=== PATIENT | male | born 1950 | race African-American/Black ===

== ENCOUNTER 2018-01-09 14:52 | Observation (INO) ==
[2018-01-09] MEDS ORDERED: Morphine Inj 4 MG/ML Vial IV.PUSH ONE (18:04)
[2018-01-09] MEDS ORDERED: Aspirin 325 MG Tablet PO ONE (18:04)
[2018-01-09 18:42] LABS: Baso % (Auto) 0.6 % (0.0-2.0); Eos # (Auto) 0.1 th/mm3 (0.0-0.4); Eos % (Auto) 1.4 % (0.0-4.0); Hematocrit 35.8 % (39.0-51.0); Hemoglobin 11.7 gm/dL (13.0-17.0); Lymph # (Auto) 1.8 th/mm3 (1.0-4.8); Lymph % (Auto) 38.4 % (9.0-44.0); Mean Corpuscular HGB Conc 32.6 % (32.0-36.0); Mean Corpuscular Hemoglobin 29.1 pg (27.0-34.0); Mean Corpuscular Volume 89.3 fL (80.0-100.0); Mean Platelet Volume 7.5 fL (7.0-11.0); Mono # (Auto) 0.2 th/mm3 (0.0-0.9); Mono % (Auto) 5.1 % (0.0-8.0); Neut # (Auto) 2.5 th/mm3 (1.8-7.7); Neut % (Auto) 54.5 % (16.0-70.0); Platelet Count 234 th/mm3 (150-450); Red Blood Count 4.01 mil/mm3 (4.50-5.90); Red Cell Distribution Width 14.7 % (11.6-17.2); White Blood Count 4.6 th/mm3 (4.0-11.0)
[2018-01-09 18:59] LABS: D-Dimer 2.25 mg/L FEU (0.00-0.50); Prothrombin Time 9.9 sec (9.8-11.6)
--- NOTE | 2018-01-09 19:00 | ED ---
HPI General Chief Complaint: Chest Pain Stated Complaint: Chest Pain Complaint Time Seen by Provider: 01/09/18 17:48 Source: patient Mode of arrival: ambulatory Limitations: no limitations History of Present Illness HPI narrative: 67-year-old male the presents to the ED for evaluation of chest pain. Per patient has been having chest pain since the past 3 days. Per patient he was opening will go away but it has not. Per patient becoming unrelenting. Per patient the pain is 8 out of 10. Feels like a pressure and short of breath. Denies any cough or runny nose. Patient states that walking makes it worse. Per patient laying flat sometimes makes it better. Denies any injury or trauma. Denies any history of heart disease in himself or family history. History of diabetes and high cholesterol. No history of high blood pressure. Has not seen anybody for this. No urinary or bowel movement issues. 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 Denies ever having a stress test. Sensation intact bilaterally. No numbness, drooling, weakness. Pain stays mainly on the mid chest And does not radiate. Related Data Home Medications Medication Instructions Recorded Confirmed gabapentin 300 mg PO BID 01/09/18 01/09/18 insulin aspart U-100 [Novolog 1 sliding scale dose SUBCUT UD 01/09/18 01/09/18 U-100 Insulin aspart] insulin degludec [Tresiba 20 unit SUBCUT DAILY 01/09/18 01/09/18 FlexTouch U-100] ranitidine HCl 75 mg PO DAILY PRN 01/09/18 01/09/18 sucralfate 1 g PO DAILY 01/09/18 01/09/18 Allergies Allergy/AdvReac Type Severity Reaction Status Date / Time No Known Allergies Allergy Unverified 01/09/18 18:04 Review of Systems ROS: all other systems reviewed are negative [facility] Medical History Medical History Chest pain (Acute) Diabetes (Acute) Gastroparesis (Acute) Social History Social History Substance History: No History of Abuse Smoking Status: Current every day smoker Tobacco Type: Cigarettes How Often Do You Have a Drink Containing Alcohol: Never Recent Travel in [facility] within the Last 8 Weeks: No Recent Out of Country Travel within the Last 8 Weeks: No Immunization History Tetanus Immunization: Unsure Exam Narrative Exam Narrative: GENERAL: Well appearing in some distress SKIN: Focused skin assessment warm/dry. HEAD: Atraumatic. Normocephalic. EYES: Pupils equal and round. No scleral icterus. No injection or drainage. ENT: No nasal bleeding or discharge. Mucous membranes pink and moist. Tongue is midline. No uvula deviation. NECK: Trachea midline. No JVD. CARDIOVASCULAR: Regular rate and rhythm. No murmur appreciated. RESPIRATORY: No accessory muscle use. Clear to auscultation. Breath sounds equal bilaterally. GASTROINTESTINAL: Abdomen soft, non-tender, nondistended. Hepatic and splenic margins not palpable. MUSCULOSKELETAL: No obvious deformities. No clubbing. No cyanosis. No edema. Full range of motion of the upper and lower extremities bilaterally. 2+ pulses bilaterally. Sensation intact bilaterally. NEUROLOGICAL: Awake and alert. No obvious cranial nerve deficits. Motor grossly within normal limits. Normal speech. PSYCHIATRIC: Appropriate mood and affect; insight and judgment normal. Course Initial Documented Vital Signs Temperature 98.8 F 01/09/18 14:57 Pulse Rate 88 01/09/18 14:57 Respiratory Rate 16 01/09/18 14:57 Blood Pressure 96/72 L 01/09/18 14:57 Pulse Oximetry 99 01/09/18 14:57 Last Documented Vital Signs Temperature 98.2 F 01/09/18 20:37 Pulse Rate 73 01/09/18 20:37 Respiratory Rate 20 01/09/18 20:39 Blood Pressure 140/84 01/09/18 20:37 Pulse Oximetry 100 01/09/18 20:37 Medical Decision Making [facility] Narrative Medical decision making narrative: 67-year-old male the presents to the ED for evaluation of chest pain. Patient was properly examined and was found to have signs and symptoms consistent appears to be chest pain. Concerning for ACS. Given aspirin, Initially patient was not given per EVAC was nitroglycerin as her initial blood pressure 90 systolic. Blood pressure was rechecked here and is now 150. Patient was given nitro. Labs and imaging ordered. Initial EKG did not show any sign of ST elevation read by me and attending. Labs and imaging here were essentially unremarkable. Patient had some improvement with the pain medication given here but unfortunately he does not have full remission of the pain. Patient does have risk factors. Mainly diabetes, high blood pressure, family history, male and age. At this time I recommend admission to chest pain center. Patient agrees with this. Case discussed with attending who agrees with plan. Patient was admitted to chest pain center by me. Medical Screen Exam Complete: Yes Emergency Medical Condition: Yes Differential Diagnosis Differential Diagnosis: Chest pain versus typical chest pain versus ACS versus PE versus pneumothorax Medical Records Medical records reviewed: Yes I reviewed the patient's medical records. Lab Data Lab results reviewed: Yes I reviewed the patient's lab results. Lab results narrative: troponin is negative CK MB negative Result diagrams: 01/09/18 18:14 01/09/18 18:14 Lab Results 01/09/18 01/09/18 01/09/18 Range/Units 18:14 18:14 18:14 WBC 4.6 (4.0-11.0) th/mm3 RBC 4.01 L (4.50-5.90) mil/mm3 Hgb 11.7 L (13.0-17.0) gm/dL Hct 35.8 L (39.0-51.0) % MCV 89.3 (80.0-100.0) fL MCH 29.1 (27.0-34.0) pg MCHC 32.6 (32.0-36.0) % RDW 14.7 (11.6-17.2) % Plt Count 234 (150-450) th/mm3 MPV 7.5 (7.0-11.0) fL Neut % (Auto) 54.5 (16.0-70.0) % Lymph % (Auto) 38.4 (9.0-44.0) % [place] % (Auto) 5.1 (0.0-8.0) % Eos % (Auto) 1.4 (0.0-4.0) % Baso % (Auto) 0.6 (0.0-2.0) % Neut # (Auto) 2.5 (1.8-7.7) th/mm3 Lymph # (Auto) 1.8 (1.0-4.8) th/mm3 [place] # (Auto) 0.2 (0.0-0.9) th/mm3 Eos # (Auto) 0.1 (0.0-0.4) th/mm3 Baso # (Auto) 0.0 (0.0-0.2) th/mm3 WBC Differential . Differential Comment Auto diff final PT 9.9 (9.8-11.6) sec INR 1.0 Ratio D-Dimer Quant (PE/DVT) 2.25 H (0.00-0.50) mg/L FEU Sodium 137 (136-145) meq/L Potassium 4.0 (3.5-5.1) meq/L Chloride 103 (98-107) meq/L Carbon Dioxide 23.9 (21.0-32.0) meq/L Anion Gap 10 (5-15) meq/L BUN 14 (7-18) mg/dL Creatinine 1.14 (0.60-1.30) mg/dL Estimated GFR 64 L (>89) mL/min Random Glucose 265 H (74-106) mg/dL Calcium 8.7 (8.5-10.1) mg/dL Magnesium 1.7 (1.5-2.5) mg/dL Total Bilirubin 0.4 (0.2-1.0) mg/dL AST 49 H (15-37) U/L ALT 71 (12-78) U/L Alkaline Phosphatase 141 H (45-117) U/L Total Creatine Kinase 66 (39-308) U/L Troponin I Less than 0.02 L (0.02-0.05) ng/mL B-Natriuretic Peptide (0-100) pg/mL Total Protein 7.7 (6.4-8.2) g/dL Albumin 3.6 (3.4-5.0) g/dL Lipase 99 (73-393) U/L 10/15/18 Range/Units 18:14 WBC (4.0-11.0) th/mm3 RBC (4.50-5.90) mil/mm3 Hgb (13.0-17.0) gm/dL Hct (39.0-51.0) % MCV (80.0-100.0) fL MCH (27.0-34.0) pg MCHC (32.0-36.0) % RDW (11.6-17.2) % Plt Count (150-450) th/mm3 MPV (7.0-11.0) fL Neut % (Auto) (16.0-70.0) % Lymph % (Auto) (9.0-44.0) % [place] % (Auto) (0.0-8.0) % Eos % (Auto) (0.0-4.0) % Baso % (Auto) (0.0-2.0) % Neut # (Auto) (1.8-7.7) th/mm3 Lymph # (Auto) (1.0-4.8) th/mm3 [place] # (Auto) (0.0-0.9) th/mm3 Eos # (Auto) (0.0-0.4) th/mm3 Baso # (Auto) (0.0-0.2) th/mm3 WBC Differential Differential Comment PT (9.8-11.6) sec INR Ratio D-Dimer Quant (PE/DVT) (0.00-0.50) mg/L FEU Sodium (136-145) meq/L Potassium (3.5-5.1) meq/L Chloride (98-107) meq/L Carbon Dioxide (21.0-32.0) meq/L Anion Gap (5-15) meq/L BUN (7-18) mg/dL Creatinine (0.60-1.30) mg/dL Estimated GFR (>89) mL/min Random Glucose (74-106) mg/dL Calcium (8.5-10.1) mg/dL Magnesium (1.5-2.5) mg/dL Total Bilirubin (0.2-1.0) mg/dL AST (15-37) U/L ALT (12-78) U/L Alkaline Phosphatase (45-117) U/L Total Creatine Kinase (39-308) U/L Troponin I (0.02-0.05) ng/mL B-Natriuretic Peptide 13 (0-100) pg/mL Total Protein (6.4-8.2) g/dL Albumin (3.4-5.0) g/dL Lipase (73-393) U/L Imaging Data Attestation: I personally reviewed and interpreted this imaging study as follows : Radiologist's impression: Chest X-Ray 01/09/18 18:04 CONCLUSION: No acute cardiopulmonary disease. Chest CTA 01/09/18 19:00 CONCLUSION: 1. No evidence of pulmonary embolism. ECG Data Attestation: I personally reviewed and interpreted this ECG as follows: Interpretation: EKG shows sinus rhythm with no sign of acute ischemia or arrhythmia. Ventricular rate of 87 bpm, TN interval of [address] elevation noted. Read by me and attending Dr. Lei. Discharge Plan Discharge Disposition Patient Disposition: 30 Still Patient Discharge Details Diagnosis: Chest pain Physicians Team ED Provider: Shelly Bey ED Midlevel Provider: Addison Olivares Primary Care Provider: UNKNOWN, Rxs /Orders / Referrals /Forms Prescriptions: No Action sucralfate 1 gram Tablet 1 g PO DAILY RF: 0 ranitidine HCl 75 mg Tablet 75 mg PO DAILY PRN (Reason: Acid Reflux) RF: 0 insulin aspart U-100 [Novolog U-100 Insulin aspart] 100 unit/mL Solution 1 sliding scale dose SUBCUT UD RF: 0 gabapentin 300 mg Capsule 300 mg PO BID RF: 0 insulin degludec [Tresiba FlexTouch U-100] 100 unit/mL (3 mL) Insulin Pen 20 unit SUBCUT DAILY RF: 0 Discharge Instructions Patient Printed Instructions: Chest Pain (ED) Discharge Interventions Interventions: Vital Signs Last Done: 01/09/18 14:57 Status ED Status: Admitted Observation Patient
--- NOTE | 2018-01-09 19:02 | XR ---
EXAM DATE: 01/09/2018 6:04 PM EDT AGE/SEX: 67 years / Male INDICATIONS: Chest pain. CLINICAL DATA: This is the patient's initial encounter. Patient reports that signs and symptoms have been present for 1 day and indicates a pain score of 7/10. MEDICAL/SURGICAL HISTORY: . Current smoker. None. COMPARISON: No prior exams available for comparison. FINDINGS: A single AP view of the chest demonstrates the lungs to be symmetrically aerated without evidence of mass, infiltrate or effusion. The cardiomediastinal contours are unremarkable. Osseous structures a re intact. There are overlying electrocardiogram leads. CONCLUSION: No acute cardiopulmonary disease. Electronically signed by: Dash Diaz MD 01/09/2018 7:01 PM EDT
[2018-01-09 19:09] LABS: Albumin 3.6 g/dL (3.4-5.0); Anion Gap 10 meq/L (5-15); Aspartate Aminotransferase 49 U/L (15-37); Blood Urea Nitrogen 14 mg/dL (7-18); Calcium 8.7 mg/dL (8.5-10.1); Carbon Dioxide 23.9 meq/L (21.0-32.0); Chloride 103 meq/L (98-107); Glomerular Filtration Rate 64 mL/min (>89); Glucose,Random 265 mg/dL (74-106); Lipase 99 U/L (73-393); Magnesium 1.7 mg/dL (1.5-2.5); Sodium 137 meq/L (136-145)
[2018-01-09 19:12] LABS: Alanine Aminotransferase 71 U/L (12-78); Alkaline Phosphatase 141 U/L (45-117); Total Protein 7.7 g/dL (6.4-8.2)
[2018-01-09 19:14] LABS: Creatine Kinase 66 U/L (39-308)
--- NOTE | 2018-01-09 21:28 | CT ---
EXAM DATE: 01/09/2018 7:24 PM EDT AGE/SEX: 67 years / Male INDICATIONS: Chest pain for three days. CLINICAL DATA: This is the patient's initial encounter. Patient reports that signs and symptoms have been present for 3 days and indicates a pain score of 7/10. MEDICAL/SURGICAL HISTORY: Diabetes. None. RADIATION DOSE: 6.56 CTDI (mGy) COMPARISON: No prior exams available for comparison. TECHNIQUE: Volumetric scanning was performed using a multi-row detector CT scanner during bolus infu salas of 76 ml Omnipaque 350 (iohexol) nonionic water-soluble contrast as a single exam dose. The daquan a was post processed with a variety of visualization algorithms including full volume maximum intensi ty projection and sliding thin slab reformation. Using automated exposure control and adjustment of t he mA and/or kV according to patient size, radiation dose was kept as low as reasonably achievable to obtain optimal diagnostic quality images. DICOM format image data is available electronically for r eview and comparison. FINDINGS: Pulmonary Arteries: No filling defects are seen in the pulmonary arteries out to the subsegmental ve ssels. The left and right pulmonary arteries are normal in diameter. Lung: No infiltrates seen. Effusion: None. Mediastinum: No evidence of mediastinal or hilar adenopathy. Other: The axilla is unremarkable. CONCLUSION: 1. No evidence of pulmonary embolism. Electronically signed by: Dash Diaz MD 01/09/2018 9:27 PM EDT
[2018-01-09] MEDS ORDERED: Acetaminophen 500 MG Tablet PO PRN (21:34)
[2018-01-10 00:33] LABS: Creatine Kinase 68 U/L (39-308)
[2018-01-10] MEDS: Morphine Inj 4 MG/ML Vial IV.PUSH PRN ×2 (00:37→10:12)
[2018-01-10 05:58] LABS: Creatine Kinase 57 U/L (39-308)
[2018-01-10 07:52] VITALS: BP 92/56; RESP 18; TEMP 98.5; O2SAT 98
[2018-01-10] MEDS ORDERED: Aluminum/Magnesium/Simethacone Susp 30 ML UDC PO ONE (08:49)
[2018-01-10] MEDS ORDERED: Dextrose 50% in Water 50 ML Vial IV.PUSH PRN (08:57)
[2018-01-10] MEDS ORDERED: Aspirin 325 MG Tablet PO SCH (09:00)
[2018-01-10] MEDS ORDERED: Gabapentin 300 MG Capsule PO SCH (09:00)
--- NOTE | 2018-01-10 09:41 | P.HPCA ---
History of Present Illness Primary Care Physician: UNKNOWN Chief Complaint: Chest pain History of Present Illness: This is a 67-year-old male with history of diabetes, gastroparesis, GERD, hyperlipidemia, neuropathy, and tobacco abuse that presents to ED via private vehicle with a client of constant chest pain times 5 days. Describes as a throbbing. Worse level is a 9 out of 10 and states that is where the level is currently. Talking seems to worsen it. Remaining still seems to improve. Certain movements aggravate it as well. Denies associated shortness of breath, nausea, diaphoresis. Cannot recall prior cardiac workup. States there is family history of heart disease. History of diabetes, hyperlipidemia, gastroparesis, GERD, neuropathy, tobacco abuse. Denies known CAD. He states his brother in his 50s of a myocardial infarction. He smokes about 1/4 pack a series daily for 45 years. States he had no alcohol for years. Has had no marijuana in for 5 months. - Diagnosis (1) Chest pain (2) Diabetes (3) GERD (gastroesophageal reflux disease) (4) Gastroparesis (5) Tobacco abuse (6) Neuropathy (7) Hyperlipidemia Review of Systems General: Patient denies fevers, chills, and recent travel. HEENT: Patient denies headache, sore throat, difficulty swallowing. Cardiovascular: Has the chest discomfort as mentioned above. Denies sensation of heart beating rapidly or irregularly. No syncope. Denies diaphoresis. Respiratory: Denies shortness of breath or inspirational chest discomfort. Denies coughing wheezing or hemoptysis. GI: Patient denies nausea, vomiting, diarrhea, abdominal pain, bloody stools. Musculoskeletal: Patient denies joint pain or edema. Denies calf pain or edema. Neurovascular: Patient denies numbness, tingling, weakness in extremities. Denies headache. Endocrine: Denies polyuria and polydipsia. Hematologic: Denies easy bruising. Skin: Denies rash or itching. PMFSH - History History Provided By: Patient - Medical History Medical History: Medical History (Last Reviewed 01/09/18 @ 18:57 by BRODY Gannon) Chest pain Diabetes Gastroparesis - Tobacco History Second Hand Smoke Exposure: Yes Tobacco Use In Past 30 Days: Yes Smoking Status: Current every day smoker Tobacco Type: Cigarettes - Alcohol History How Often Do You Have a Drink Containing Alcohol: Never - Substance Use History Substance History: No History of Abuse - Travel History Recent Travel in the [place] Within the Last 8 Weeks: No Recent Travel Out of the Country Within the Last 8 Weeks: No - Immunization History Tetanus Immunization: Unsure Medications and Allergies Active Medications: Active Medications Acetaminophen (Tylenol) 500 mg PO Q4H PRN PRN Reason: HEADACHE Hydrocodone Bitart/Acetaminophen (Hope 7.5/325) 1 tab PO Q4H PRN PRN Reason: PAIN SCALE 1 TO 7 Albuterol (Duoneb Neb (Prn)) 1 ampul NEB Q4HR NEB PRN PRN Reason: SHORTNESS OF BREATH/WHEEZING Aspirin (Aspirin) 325 mg PO DAILY JAMAL Dextrose (D50w Vial) 50 ml IV.PUSH UNSCH PRN PRN Reason: PER HYPOGLYCEMIA PROTOCOL Gabapentin (Neurontin) 300 mg PO BID JAMAL Glucagon (Glucagon Inj) 1 mg OTHER PRN PRN PRN Reason: for Hypoglycemia Protocol Insulin Human Regular (Novolin R Correctional Sugar Inj) 0 units SQ ACHS JAMAL; Protocol Morphine Sulfate (Morphine Inj) 2 mg IV.PUSH Q4H PRN PRN Reason: PAIN SCALE 8 TO 10 Last Admin: 01/10/18 00:37 Dose: 2 mg Ondansetron HCl (Zofran Inj) 4 mg IV.PUSH Q6H PRN PRN Reason: NAUSEA Pantoprazole Sodium (Protonix) 40 mg PO DAILY JAMAL Sodium Chloride (Ns Flush) 2 ml IV.FLUSH UNSCH PRN PRN Reason: FLUSH AFTER USING IV ACCESS Sodium Chloride (Ns Flush) 2 ml IV.FLUSH BID JAMAL Sodium Chloride (Ns Flush) 2 ml IV.FLUSH PRN PRN PRN Reason: FLUSH AFTER USING IV ACCESS Allergies Allergy/AdvReac Type Severity Reaction Status Date / Time No Known Allergies Allergy Unverified 01/09/18 18:04 Home Medications Medication Instructions Recorded Confirmed Type gabapentin 300 mg PO BID 01/09/18 01/09/18 History insulin aspart U-100 [Novolog 1 sliding scale dose SUBCUT UD 01/09/18 01/09/18 History U-100 Insulin aspart] insulin degludec [Tresiba 20 unit SUBCUT DAILY 01/09/18 01/09/18 History FlexTouch U-100] ranitidine HCl 75 mg PO DAILY PRN 01/09/18 01/09/18 History sucralfate 1 g PO DAILY 01/09/18 01/09/18 History Exam Vital signs: Vital Signs 01/09/18 14:57 01/09/18 18:18 01/09/18 20:37 Temperature 98.8 F 98 F 98.2 F Pulse Rate 88 87 72 Respiratory Rate 16 18 20 Blood Pressure 96/72 L 155/75 H 140/84 Pulse Oximetry 99 99 100 01/09/18 20:38 01/09/18 20:39 01/09/18 23:17 Temperature 98.2 F Pulse Rate 75 Respiratory Rate 20 20 20 Blood Pressure 125/68 Pulse Oximetry 95 01/10/18 03:15 01/10/18 07:49 Temperature 97.8 F 98.5 F Pulse Rate 67 76 Respiratory Rate 19 18 Blood Pressure 119/70 92/56 L Pulse Oximetry 100 98 Intake & Output 01/09/18 01/10/18 01/10/18 18:59 06:59 18:59 Weight 55.338 kg 55.34 kg Other: Date of Last Bowel Movement 01/09/18 Weight On Admission 55.338 kg Narrative: GENERAL: This is a well-nourished, well-developed patient, in no apparent distress. Patient speaks in clear complete sentences. Patient is pleasant. HEENT: Head is atraumatic and normocephalic. Neck is supple without lymphadenopathy and trachea is midline. No JVD or carotid bruits. CARDIOVASCULAR: Regular rate and rhythm without murmurs, gallops, or rubs. RESPIRATORY: Clear to auscultation. Breath sounds equal bilaterally. No wheezes , rales, or rhonchi. Chest wall is tender. No use of accessory muscles. GASTROINTESTINAL: Abdomen is nontender, nondistended. Abdomen soft. No obvious pulsatile mass or bruit. No CVA tenderness. Strong femoral pulses bilaterally. Normal bowel sounds in all quadrants. MUSCULOSKELETAL: Patient is moving upper and lower extremities freely. No calf tenderness or edema, no Homans sign. Strong pulses in upper and lower extremities. NEUROLOGICAL: Patient is alert and oriented. Cranial nerves 2-12 are grossly intact. No focal deficits and speech is clear. SKIN: No rash and turgor is normal. Results 01/09/18 18:14 01/09/18 18:14 Cardiac Enzymes 01/09/18 01/09/18 01/09/18 Range/Units 18:14 18:14 23:45 AST 49 H (15-37) U/L Troponin I Less than 0.02 L Less than 0.02 L (0.02-0.05) ng/mL B-Natriuretic Peptide 13 (0-100) pg/mL 01/10/18 Range/Units 05:10 AST (15-37) U/L Troponin I Less than 0.02 L (0.02-0.05) ng/mL B-Natriuretic Peptide (0-100) pg/mL Coagulation 01/09/18 01/09/18 Range/Units 18:14 18:14 PT 9.9 (9.8-11.6) sec B-Natriuretic Peptide 13 (0-100) pg/mL CBC 01/09/18 Range/Units 18:14 WBC 4.6 (4.0-11.0) th/mm3 RBC 4.01 L (4.50-5.90) mil/mm3 Hgb 11.7 L (13.0-17.0) gm/dL Hct 35.8 L (39.0-51.0) % Plt Count 234 (150-450) th/mm3 Neut # (Auto) 2.5 (1.8-7.7) th/mm3 Lymph # (Auto) 1.8 (1.0-4.8) th/mm3 [place] # (Auto) 0.2 (0.0-0.9) th/mm3 Eos # (Auto) 0.1 (0.0-0.4) th/mm3 Baso # (Auto) 0.0 (0.0-0.2) th/mm3 Comprehensive Metabolic Panel 01/09/18 Range/Units 18:14 Sodium 137 (136-145) meq/L Potassium 4.0 (3.5-5.1) meq/L Chloride 103 (98-107) meq/L Carbon Dioxide 23.9 (21.0-32.0) meq/L BUN 14 (7-18) mg/dL Creatinine 1.14 (0.60-1.30) mg/dL Calcium 8.7 (8.5-10.1) mg/dL AST 49 H (15-37) U/L ALT 71 (12-78) U/L Alkaline Phosphatase 141 H (45-117) U/L Total Protein 7.7 (6.4-8.2) g/dL Albumin 3.6 (3.4-5.0) g/dL Intake and Output 01/09/18 01/10/18 01/10/18 22:59 06:59 14:59 Other: Date of Last Bowel Movement 01/09/18 Weight 55.34 kg Weight On Admission 55.338 kg - Imaging and Cardiology Imaging: Impressions Chest X-Ray 01/09/18 18:04 CONCLUSION: No acute cardiopulmonary disease. Chest CTA 01/09/18 19:00 CONCLUSION: 1. No evidence of pulmonary embolism. EKG interpretations - EKG EKG shows: sinus rhythm (EKGs are sinus rhythm without significant ST segment depressions or elevations.) Caprini VTE Risk Assessment Caprini VTE Risk Assessment: Moderate/High Risk (score >= 2) Caprini Risk Assessment Model: Point Value = 1 Point Value = 2 Point Value = 3 Point Value = 5 Age 41-60 Minor surgery BMI > 25 kg/m2 Swollen legs Varicose veins or History of unexplained or recurrent spontaneous Oral contraceptives or hormone replacement Sepsis (< 1 month) Serious lung disease, including pneumonia (< 1 month) Abnormal pulmonary function Acute myocardial infarction Congestive heart failure (< 1 month) History of inflammatory bowel disease Medical patient at bed rest Age 61-74 Arthroscopic surgery Major open surgery (> 45 min) Laparoscopic surgery (> 45 min) Malignancy Confined to bed (> 72 hours) Immobilizing plaster cast Central venous access Age >= 75 History of VTE Family history of VTE Factor V Leiden Prothrombin [id number] Lupus anticoagulant Anticardiolipin antibodies Elevated serum homocysteine Heparin-induced thrombocytopenia Other congenital or acquired thrombophilia Stroke (< 1 month) Elective arthroplasty Hip, pelvis, or leg fracture Acute spinal cord injury (< 1 month) Prophylaxis Regimen: Total Risk Factor Score Risk Level Prophylaxis Regimen 0-1 Low Early ambulation 2 Moderate Order ONE of the following: *Sequential Compression Device (SCD) *Heparin 5000 units SQ BID 3-4 Higher Order ONE of the following medications: *Heparin 5000 units SQ TID *Enoxaparin/Lovenox 40 mg SQ daily (WT < 150 kg, CrCl > 30 mL/min) *Enoxaparin/Lovenox 30 mg SQ daily (WT < 150 kg, CrCl > 10-29 mL/min) *Enoxaparin/Lovenox 30 mg SQ BID (WT < 150 kg, CrCl > 30 mL/min) AND/OR *Sequential Compression Device (SCD) 5 or more Highest Order ONE of the following medications: *Heparin 5000 units SQ TID (Preferred with Epidurals) *Enoxaparin/Lovenox 40 mg SQ daily (WT < 150 kg, CrCl > 30 mL/min) *Enoxaparin/Lovenox 30 mg SQ daily (WT < 150 kg, CrCl > 10-29 mL/min) *Enoxaparin/Lovenox 30 mg SQ BID (WT < 150 kg, CrCl > 30 mL/min) AND *Sequential Compression Device (SCD) Assessment and Plan - Assessment (1) Chest pain Code(s): R07.9 - Chest pain, unspecified Status: Acute (2) Diabetes Code(s): E11.9 - Type 2 diabetes mellitus without complications Status: Acute (3) GERD (gastroesophageal reflux disease) Code(s): K21.9 - Gastro-esophageal reflux disease without esophagitis Status: Acute (4) Gastroparesis Code(s): K31.84 - Gastroparesis Status: Acute (5) Tobacco abuse Code(s): Z72.0 - Tobacco use Status: Acute (6) Neuropathy Code(s): G62.9 - Polyneuropathy, unspecified Status: Acute (7) Hyperlipidemia Code(s): E78.5 - Hyperlipidemia, unspecified Status: Acute - Plan * Chest pain: Symptoms seem atypical however he has multiple risk factors. He has had serial cardiac enzymes and EKGs for ruling out purposes. He will be seen by Dr. Stoll of cardiology and chest pain center. He will undergo a Lexiscan as he states that he would not be able to go on a treadmill with his neuropathy in his feet. He will be discharged home if the stress test is nonischemic with instructions to follow-up with PCP and return to ED for interval issues. * Diabetes: Sliding scale insulin coverage while in chest pain center. Resume medication at home. Follow diabetic diet. * Hyperlipidemia: States he was recently started on statin. Cannot recall the name but he should resume it. Follow-up with his PCP. * Neuropathy: Continues gabapentin. * Gastroparesis and GERD: Continue his medications and follow-up with his physician. * Tobacco abuse: Patient has been counseled on the importance of smoking cessation. Patient is stable at this time. He is agreeable to this plan. H&P: Quality - VTE Deep Vein Thrombosis/Pulmonary Embolism Present on Admission: No (1) Chest pain Qualifiers: Chest pain type: other chest pain Qualified Code(s): R07.89 - Other chest pain; R07.8 - Other chest pain
[2018-01-10] MEDS ORDERED: Regadenoson Inj 0.4 MG/5 ML Syringe IV.PUSH ONE (11:06)
[2018-01-10 11:34] VITALS: PULSE 71
[2018-01-10] MEDS ORDERED: Insulin NovoLIN Regular Correctional Sugar Inj SQ SCH (12:00)
--- NOTE | 2018-01-10 12:37 | TR ---
Date Performed: 01/10/2018 Time Performed: 11:55:30 DOCTOR: Andi Stoll DRUG LIST: CLINICAL HISTORY: REASON FOR TEST: REASON FOR ENDING: OBSERVATION: CONCLUSION: COMMENTS: Lexiscan stress test was performed under standard four minute protocol. Radionuclide was injected one minute prior to ending the test. No electrocardiographic abormalities were present t o suggest ischemia. Nuclear imaging and interpretation are pending.
--- NOTE | 2018-01-10 12:49 | ECG ---
Date Performed: 01/10/2018 Time Performed: 03:06:59 PTAGE: 67 years EKG: Sinus rhythm NORMAL ECG PREVIOUS TRACING : 01/09/2018 22.00 Since previous tracing, no significant change noted DOCTOR: Andi Stoll Interpretating Date/Time 01/10/2018 12:47:20
--- NOTE | 2018-01-10 12:57 | ECG ---
Date Performed: 01/09/2018 Time Performed: 22:00:23 PTAGE: 67 years EKG: Sinus rhythm NORMAL ECG PREVIOUS TRACING : 01/09/2018 15.06 Since previous tracing, no significant change noted DOCTOR: Andi Stoll Interpretating Date/Time 01/10/2018 12:55:50
--- NOTE | 2018-01-10 13:07 | ECG ---
Date Performed: 01/09/2018 Time Performed: 15:06:03 PTAGE: 67 years EKG: Sinus rhythm NORMAL ECG NO PREVIOUS TRACING DOCTOR: Andi Stoll Interpretating Date/Time 01/10/2018 13:07:21
--- NOTE | 2018-01-10 13:20 | NM ---
EXAM DATE: 01/10/2018 10:20 AM EDT AGE/SEX: 67 years / Male INDICATIONS:Angina. . Chest pain. CLINICAL DATA: This is the patient's initial encounter. Patient reports that signs and symptoms have been present for 1 day and indicates a pain score of 0/10. MEDICAL/SURGICAL HISTORY: Diabetes mellitus type II. Gastroparesis. None. COMPARISON: No prior exams available for comparison. DOSE: 8.3 mCi Tc 99m Myoview at rest 27.2 mCi [id number] at stress 0.4 mg Lexiscan STRESS SYMPTOMS: Dyspnea. EJECTION FRACTION: 68 % TECHNIQUE: The patient underwent pharmacologic stress with infusion of prescribed dose. Continuous ECG tracing was monitored during stress. Gated SPECT imaging was performed after stress and conventi onal SPECT imaging was performed at rest. The examination was performed on a SPECT/CT scanner, both attenuation and non-corrected datasets were reviewed. FINDINGS: Large amount of bowel activity limiting evaluation of the inferior wall. Distribution: The maximum perfused segment at stress is in the anteroseptal wall. Perfusion Study: The pattern of perfusion at stress is within normal limits. Gated Study: There are intact wall motion and wall thickening without hypokinetic or dyskinetic segm ents. The ejection fraction is calculated at 68%. RISK CATEGORY: Low (<1% Annual Motality Rate) CONCLUSION: 1. No stress-induced ischemia. 2. Intact wall motion with EF of 68%. Electronically signed by: Adebayo Hernandez MD 01/10/2018 1:19 PM EDT
== END 2018-01-10 16:13 | disposition home or self-care (01) ==
LOC: NEDA 14:52 → NEPC 14:52 → NEPFCDU 22:13

== ENCOUNTER 2018-02-04 20:04 | Inpatient (IN) ==
[2018-02-04 20:46] LABS: VBG Base Excess 5.2 mmol/L (-2-2); VBG Blood Gas Oxygen Content 8.5 Vol % (9.0-17.0); VBG PCO2 63 mmHG (44-48); VBG PH 7.31 (7.360-7.400); VBG PO2 33 mmHG (35-40)
[2018-02-04] MEDS: Sod Chloride 0.9% Inj 1,000 ML IV.SIG SCH ×3 (20:54→22:05)
[2018-02-04 20:58] LABS: Baso % (Auto) 0.1 % (0.0-2.0); Eos % (Auto) 0.1 % (0.0-4.0); Hematocrit 44.8 % (39.0-51.0); Hemoglobin 13.3 gm/dL (13.0-17.0); Lymph # (Auto) 0.6 th/mm3 (1.0-4.8); Lymph % (Auto) 8.1 % (9.0-44.0); Mean Corpuscular Volume 97.8 fL (80.0-100.0); Mean Platelet Volume 8.6 fL (7.0-11.0); Mono # (Auto) 0.2 th/mm3 (0.0-0.9); Mono % (Auto) 3.1 % (0.0-8.0); Neut # (Auto) 6.1 th/mm3 (1.8-7.7); Neut % (Auto) 88.6 % (16.0-70.0); Platelet Count 218 th/mm3 (150-450); Red Blood Count 4.59 mil/mm3 (4.50-5.90); Red Cell Distribution Width 15.1 % (11.6-17.2); White Blood Count 6.9 th/mm3 (4.0-11.0)
[2018-02-04 21:00] LABS: Mean Corpuscular HGB Conc 29.6 % (32.0-36.0)
[2018-02-04 21:11] LABS: Amorphous Sediment,Urine Rare /hpf; Bilirubin,Urine Negative (Negative); Clarity,Urine Hazy (Clear); Color,Urine Straw (Yellw/Straw); Glucose,Urine (UA) 500 or Greater mg/dL (Negative); Leukocyte Esterase,Urine Negative (Negative); Nitrite,Urine Negative (Negative); Specific Gravity,Urine 1.027 (1.002-1.035)
[2018-02-04 21:26] LABS: Alanine Aminotransferase 69 U/L (12-78); Albumin 4.6 g/dL (3.4-5.0); Alkaline Phosphatase 422 U/L (45-117); Anion Gap 10 meq/L (5-15); Aspartate Aminotransferase 48 U/L (15-37); Blood Urea Nitrogen 45 mg/dL (7-18); Calcium 10.8 mg/dL (8.5-10.1); Carbon Dioxide 30.6 meq/L (21.0-32.0); Chloride 98 meq/L (98-107); Creatine Kinase 105 U/L (39-308); Glomerular Filtration Rate 47 mL/min (>89); Magnesium 3.1 mg/dL (1.5-2.5); Potassium 5.3 meq/L (3.5-5.1); Sodium 139 meq/L (136-145); Total Protein 9.4 g/dL (6.4-8.2)
[2018-02-04 21:29] LABS: Glucose,Random 1246 mg/dL (74-106)
--- NOTE | 2018-02-04 21:38 | ED ---
HPI General Chief Complaint: Altered Mental Status Stated Complaint: Poss AMS Time Seen by Provider: 02/04/18 20:06 Source: EMS Mode of arrival: EMS Limitations: altered mental status History of Present Illness HPI narrative: 67-year-old male was found down at his home and 911 was called. Unknown downtime. Unknown last seen normal. He was covered in feces. Patient has history of diabetes and as per EMS his blood sugar read was "high". Patient was brought in with a GCS of 12. Vital signs were relatively stable. He was not in a condition to give any meaningful history. There was no friend or family member around him. Related Data Home Medications Medication Instructions Recorded Confirmed gabapentin 300 mg PO BID 01/09/18 02/04/18 insulin aspart U-100 [Novolog 1 sliding scale dose SUBCUT UD 01/09/18 02/04/18 U-100 Insulin aspart] insulin degludec [Tresiba 20 unit SUBCUT DAILY 01/09/18 02/04/18 FlexTouch U-100] ranitidine HCl 75 mg PO DAILY PRN 01/09/18 02/04/18 sucralfate 1 g PO DAILY 01/09/18 02/04/18 aspirin [Aspir-81] 81 mg PO DAILY 02/04/18 02/04/18 Allergies Allergy/AdvReac Type Severity Reaction Status Date / Time No Known Allergies Allergy Unverified 01/09/18 18:04 Review of Systems ROS Unobtainable ROS Unobtainable: unobtainable due to mental status ROS: all other systems reviewed are negative [facility] Medical History Medical History Chest pain (Acute) Diabetes (Acute) Gastroparesis (Acute) MDRO (multiple drug resistant organisms) resistance (Acute ~02/05/18) Social History Social History Substance History: Past History Second Hand Smoke Exposure: Yes Smoking Status: Heavy tobacco smoker Tobacco Type: Cigarettes How Often Do You Have a Drink Containing Alcohol: Never Recent Travel in [place] within the Last 8 Weeks: No Recent Out of Country Travel within the Last 8 Weeks: No Immunization History Tetanus Immunization: Unsure Exam Narrative Exam Narrative: GENERAL: Altered mental status, emaciated, poor general hygiene , moderate distress SKIN: Focused skin assessment warm/dry. Poor skin hygiene HEAD: Atraumatic. Normocephalic. EYES: Pupils equal and round. No scleral icterus. No injection or drainage. ENT: No nasal bleeding or discharge. Dry mucous membrane, coated tongue NECK: Trachea midline. No JVD. CARDIOVASCULAR: Regular rate and rhythm. No murmur appreciated. RESPIRATORY: No accessory muscle use. Clear to auscultation. Breath sounds equal bilaterally. GASTROINTESTINAL: Abdomen soft, non-tender, nondistended. Hepatic and splenic margins not palpable. MUSCULOSKELETAL: No obvious deformities. No clubbing. No cyanosis. No edema. NEUROLOGICAL: GCS of 12. No obvious cranial nerve deficits. Motor grossly within normal limits. PSYCHIATRIC: Unable to determine Course Initial Documented Vital Signs Temperature 98.7 F 02/04/18 20:09 Pulse Rate 96 H 02/04/18 20:09 Respiratory Rate 20 02/04/18 20:09 Blood Pressure 125/74 02/04/18 20:09 Pulse Oximetry 96 02/04/18 20:09 Last Documented Vital Signs Temperature 97.9 F 02/07/18 08:00 Pulse Rate 70 02/07/18 12:00 Respiratory Rate 18 02/07/18 08:00 Blood Pressure 152/86 H 02/07/18 08:00 Pulse Oximetry 99 02/07/18 10:52 Critical Care Time Critical Care Time: Yes Total Critical Care Time: 75 Attestation: Aggregate critical care time was 60 minutes. Time to perform other separately billable procedures was not included in the critical care time. My time did not include minutes spent treating any other patients simultaneously or on activities that did not directly contribute to the patient's treatment. The services I provided to this patient were to treat and/or prevent clinically significant deterioration that could result in: Altered mental status, severe dehydration, hyperglycemia, insulin drip I provided critical care services requiring my management, as noted below: Chart data review, documentation time, medication orders and management, vital sign assessments/reviewing monitor data, ordering and reviewing lab tests, ordering and interpreting/reviewing x-rays and diagnostic studies, care of the patient and discussion of the patient with the admitting physicians. Medical Decision Making MDM Narrative Medical decision making narrative: 9:43 PM patient was given 3 L of IV fluid bolus and 7.5 units of IV regular insulin. Lab just called to inform the critically high blood sugar of 1250. UA suggestive of UTI. Have given a dose of Rocephin. Patient given his altered mental status and severe dehydration should go to the ICU. Awaiting for the solutions sales consultant to call back. 10:10 PM repeat blood glucose is still more than 600. I started him on insulin drip as per the solutions sales consultant request. Supervisor Mending has accepted the patient. Waiting for CT head and chest x-ray. Medical Screen Exam Complete: Yes Emergency Medical Condition: Yes Lab Data Result diagrams: 02/07/18 04:59 02/07/18 04:59 Lab Results 02/04/18 02/04/18 02/04/18 Range/Units 20:18 20:40 20:46 WBC 6.9 (4.0-11.0) th/mm3 RBC 4.59 (4.50-5.90) mil/mm3 Hgb 13.3 (13.0-17.0) gm/dL Hct 44.8 (39.0-51.0) % MCV 97.8 (80.0-100.0) fL MCH 29.0 (27.0-34.0) pg MCHC 29.6 L (32.0-36.0) % RDW 15.1 (11.6-17.2) % Plt Count 218 (150-450) th/mm3 MPV 8.6 (7.0-11.0) fL Neut % (Auto) 88.6 H (16.0-70.0) % Lymph % (Auto) 8.1 L (9.0-44.0) % [place] % (Auto) 3.1 (0.0-8.0) % Eos % (Auto) 0.1 (0.0-4.0) % Baso % (Auto) 0.1 (0.0-2.0) % Neut # (Auto) 6.1 (1.8-7.7) th/mm3 Lymph # (Auto) 0.6 L (1.0-4.8) th/mm3 [place] # (Auto) 0.2 (0.0-0.9) th/mm3 Eos # (Auto) 0.0 (0.0-0.4) th/mm3 Baso # (Auto) 0.0 (0.0-0.2) th/mm3 WBC Differential . Differential Comment Auto diff final Puncture Site Rn elaine from iv Patient Temperature 98.6 VBG pH 7.31 L (7.360-7.400) VBG pCO2 63 H* (44-48) mmHG VBG pO2 33 L (35-40) mmHG VBG HCO3 31 H (22-26) mmol/L VBG O2 Saturation 49 L (70-76) % VBG O2 Content 8.5 L (9.0-17.0) Vol % VBG Base Excess 5.2 H (-2-2) mmol/L VBG Carboxyhemoglobin 1.4 (0-4) % VBG Methemoglobin 0.6 (0-2) % Hemoglobin 12.3 (12.0-16.0) G/DL O2 Delivery Device Room air Inspired O2 21 % Critical Value Yes Sodium (136-145) meq/L Potassium (3.5-5.1) meq/L Chloride (98-107) meq/L Carbon Dioxide (21.0-32.0) meq/L Anion Gap (5-15) meq/L BUN (7-18) mg/dL Creatinine (0.60-1.30) mg/dL Estimated GFR (>89) mL/min POC Glucose Greater than 600 H* (68-110) mg/dl Random Glucose (74-106) mg/dL Lactic Acid (0.4-2.0) mmol/L Calcium (8.5-10.1) mg/dL Phosphorus (2.5-4.9) mg/dL Magnesium (1.5-2.5) mg/dL Total Bilirubin (0.2-1.0) mg/dL AST (15-37) U/L ALT (12-78) U/L Alkaline Phosphatase (45-117) U/L Ammonia (11-32) mcmol/L Total Creatine Kinase (39-308) U/L Troponin I (0.02-0.05) ng/mL Total Protein (6.4-8.2) g/dL Albumin (3.4-5.0) g/dL Urine Color (Yellw/Straw) Urine Clarity (Clear) Urine pH (5.0-8.5) Ur Specific [place] (1.002-1.035) Urine Protein (Neg-Trace) mg/dL Urine Glucose (UA) (Negative) mg/dL Urine Ketones (Negative) mg/dL Urine Occult Blood (Negative) Urine Nitrate (Negative) Urine Bilirubin (Negative) Urine Urobilinogen (Less than 2) mg/dL Ur Leukocyte Esterase (Negative) Urine RBC (0-3) /hpf Urine WBC (0-5) /hpf Amorphous Sediment (None) /hpf Micro UA Comment Ur Microscopic Review Urine Culture Comments Nasal Screen MRSA (PCR) (Negative) 02/04/18 02/04/18 02/04/18 Range/Units 20:46 20:46 20:46 WBC (4.0-11.0) th/mm3 RBC (4.50-5.90) mil/mm3 Hgb (13.0-17.0) gm/dL Hct (39.0-51.0) % MCV (80.0-100.0) fL MCH (27.0-34.0) pg MCHC (32.0-36.0) % RDW (11.6-17.2) % Plt Count (150-450) th/mm3 MPV (7.0-11.0) fL Neut % (Auto) (16.0-70.0) % Lymph % (Auto) (9.0-44.0) % [place] % (Auto) (0.0-8.0) % Eos % (Auto) (0.0-4.0) % Baso % (Auto) (0.0-2.0) % Neut # (Auto) (1.8-7.7) th/mm3 Lymph # (Auto) (1.0-4.8) th/mm3 [place] # (Auto) (0.0-0.9) th/mm3 Eos # (Auto) (0.0-0.4) th/mm3 Baso # (Auto) (0.0-0.2) th/mm3 WBC Differential Differential Comment Puncture Site Patient Temperature VBG pH (7.360-7.400) VBG pCO2 (44-48) mmHG VBG pO2 (35-40) mmHG VBG HCO3 (22-26) mmol/L VBG O2 Saturation (70-76) % VBG O2 Content (9.0-17.0) Vol % VBG Base Excess (-2-2) mmol/L VBG Carboxyhemoglobin (0-4) % VBG Methemoglobin (0-2) % Hemoglobin (12.0-16.0) G/DL O2 Delivery Device Inspired O2 % Critical Value Sodium 139 (136-145) meq/L Potassium 5.3 H (3.5-5.1) meq/L Chloride 98 (98-107) meq/L Carbon Dioxide 30.6 (21.0-32.0) meq/L Anion Gap 10 (5-15) meq/L BUN 45 H (7-18) mg/dL Creatinine 1.78 H (0.60-1.30) mg/dL Estimated GFR 47 L (>89) mL/min POC Glucose (68-110) mg/dl Random Glucose 1246 H* (74-106) mg/dL Lactic Acid (0.4-2.0) mmol/L Calcium 10.8 H (8.5-10.1) mg/dL Phosphorus (2.5-4.9) mg/dL Magnesium 3.1 H (1.5-2.5) mg/dL Total Bilirubin 0.3 (0.2-1.0) mg/dL AST 48 H (15-37) U/L ALT 69 (12-78) U/L Alkaline Phosphatase 422 H (45-117) U/L Ammonia 11 (11-32) mcmol/L Total Creatine Kinase 105 (39-308) U/L Troponin I Less than 0.02 L (0.02-0.05) ng/mL Total Protein 9.4 H (6.4-8.2) g/dL Albumin 4.6 (3.4-5.0) g/dL Urine Color Straw (Yellw/Straw) Urine Clarity Hazy H (Clear) Urine pH 7.0 (5.0-8.5) Ur Specific [place] 1.027 (1.002-1.035) Urine Protein Negative (Neg-Trace) mg/dL Urine Glucose (UA) 500 or greater (Negative) mg/dL Urine Ketones Trace H (Negative) mg/dL Urine Occult Blood Large H (Negative) Urine Nitrate Negative (Negative) Urine Bilirubin Negative (Negative) Urine Urobilinogen Less than 2 (Less than 2) mg/dL Ur Leukocyte Esterase Negative (Negative) Urine RBC 51 H (0-3) /hpf Urine WBC 70 H (0-5) /hpf Amorphous Sediment Rare H (None) /hpf Micro UA Comment Cath-culture ind Ur Microscopic Review Not Reportable Urine Culture Comments Cath-cult indicated Nasal Screen MRSA (PCR) (Negative) 02/04/18 02/04/18 02/05/18 Range/Units 21:55 23:13 00:15 WBC (4.0-11.0) th/mm3 RBC (4.50-5.90) mil/mm3 Hgb (13.0-17.0) gm/dL Hct (39.0-51.0) % MCV (80.0-100.0) fL MCH (27.0-34.0) pg MCHC (32.0-36.0) % RDW (11.6-17.2) % Plt Count (150-450) th/mm3 MPV (7.0-11.0) fL Neut % (Auto) (16.0-70.0) % Lymph % (Auto) (9.0-44.0) % [place] % (Auto) (0.0-8.0) % Eos % (Auto) (0.0-4.0) % Baso % (Auto) (0.0-2.0) % Neut # (Auto) (1.8-7.7) th/mm3 Lymph # (Auto) (1.0-4.8) th/mm3 [place] # (Auto) (0.0-0.9) th/mm3 Eos # (Auto) (0.0-0.4) th/mm3 Baso # (Auto) (0.0-0.2) th/mm3 WBC Differential Differential Comment Puncture Site Patient Temperature VBG pH (7.360-7.400) VBG pCO2 (44-48) mmHG VBG pO2 (35-40) mmHG VBG HCO3 (22-26) mmol/L VBG O2 Saturation (70-76) % VBG O2 Content (9.0-17.0) Vol % VBG Base Excess (-2-2) mmol/L VBG Carboxyhemoglobin (0-4) % VBG Methemoglobin (0-2) % Hemoglobin (12.0-16.0) G/DL O2 Delivery Device Inspired O2 % Critical Value Sodium (136-145) meq/L Potassium (3.5-5.1) meq/L Chloride (98-107) meq/L Carbon Dioxide (21.0-32.0) meq/L Anion Gap (5-15) meq/L BUN (7-18) mg/dL Creatinine (0.60-1.30) mg/dL Estimated GFR (>89) mL/min POC Glucose Greater than 600 H* Greater than 600 H* (68-110) mg/dl Random Glucose (74-106) mg/dL Lactic Acid (0.4-2.0) mmol/L Calcium (8.5-10.1) mg/dL Phosphorus (2.5-4.9) mg/dL Magnesium (1.5-2.5) mg/dL Total Bilirubin (0.2-1.0) mg/dL AST (15-37) U/L ALT (12-78) U/L Alkaline Phosphatase (45-117) U/L Ammonia (11-32) mcmol/L Total Creatine Kinase (39-308) U/L Troponin I (0.02-0.05) ng/mL Total Protein (6.4-8.2) g/dL Albumin (3.4-5.0) g/dL Urine Color (Yellw/Straw) Urine Clarity (Clear) Urine pH (5.0-8.5) Ur Specific [place] (1.002-1.035) Urine Protein (Neg-Trace) mg/dL Urine Glucose (UA) (Negative) mg/dL Urine Ketones (Negative) mg/dL Urine Occult Blood (Negative) Urine Nitrate (Negative) Urine Bilirubin (Negative) Urine Urobilinogen (Less than 2) mg/dL Ur Leukocyte Esterase (Negative) Urine RBC (0-3) /hpf Urine WBC (0-5) /hpf Amorphous Sediment (None) /hpf Micro UA Comment Ur Microscopic Review Urine Culture Comments Nasal Screen MRSA (PCR) Mrsa detected (Negative) 02/05/18 02/05/18 02/05/18 Range/Units 00:21 00:56 02:29 WBC (4.0-11.0) th/mm3 RBC (4.50-5.90) mil/mm3 Hgb (13.0-17.0) gm/dL Hct (39.0-51.0) % MCV (80.0-100.0) fL MCH (27.0-34.0) pg MCHC (32.0-36.0) % RDW (11.6-17.2) % Plt Count (150-450) th/mm3 MPV (7.0-11.0) fL Neut % (Auto) (16.0-70.0) % Lymph % (Auto) (9.0-44.0) % [place] % (Auto) (0.0-8.0) % Eos % (Auto) (0.0-4.0) % Baso % (Auto) (0.0-2.0) % Neut # (Auto) (1.8-7.7) th/mm3 Lymph # (Auto) (1.0-4.8) th/mm3 [place] # (Auto) (0.0-0.9) th/mm3 Eos # (Auto) (0.0-0.4) th/mm3 Baso # (Auto) (0.0-0.2) th/mm3 WBC Differential Differential Comment Puncture Site Patient Temperature VBG pH (7.360-7.400) VBG pCO2 (44-48) mmHG VBG pO2 (35-40) mmHG VBG HCO3 (22-26) mmol/L VBG O2 Saturation (70-76) % VBG O2 Content (9.0-17.0) Vol % VBG Base Excess (-2-2) mmol/L VBG Carboxyhemoglobin (0-4) % VBG Methemoglobin (0-2) % Hemoglobin (12.0-16.0) G/DL O2 Delivery Device Inspired O2 % Critical Value Sodium (136-145) meq/L Potassium (3.5-5.1) meq/L Chloride (98-107) meq/L Carbon Dioxide (21.0-32.0) meq/L Anion Gap (5-15) meq/L BUN (7-18) mg/dL Creatinine (0.60-1.30) mg/dL Estimated GFR (>89) mL/min POC Glucose Greater than 600 H* 579 H* (68-110) mg/dl Random Glucose 836 H* D (74-106) mg/dL Lactic Acid (0.4-2.0) mmol/L Calcium (8.5-10.1) mg/dL Phosphorus (2.5-4.9) mg/dL Magnesium (1.5-2.5) mg/dL Total Bilirubin (0.2-1.0) mg/dL AST (15-37) U/L ALT (12-78) U/L Alkaline Phosphatase (45-117) U/L Ammonia (11-32) mcmol/L Total Creatine Kinase (39-308) U/L Troponin I Less than 0.02 L (0.02-0.05) ng/mL Total Protein (6.4-8.2) g/dL Albumin (3.4-5.0) g/dL Urine Color (Yellw/Straw) Urine Clarity (Clear) Urine pH (5.0-8.5) Ur Specific [place] (1.002-1.035) Urine Protein (Neg-Trace) mg/dL Urine Glucose (UA) (Negative) mg/dL Urine Ketones (Negative) mg/dL Urine Occult Blood (Negative) Urine Nitrate (Negative) Urine Bilirubin (Negative) Urine Urobilinogen (Less than 2) mg/dL Ur Leukocyte Esterase (Negative) Urine RBC (0-3) /hpf Urine WBC (0-5) /hpf Amorphous Sediment (None) /hpf Micro UA Comment Ur Microscopic Review Urine Culture Comments Nasal Screen MRSA (PCR) (Negative) 02/05/18 02/05/18 02/05/18 Range/Units 03:16 03:50 04:12 WBC (4.0-11.0) th/mm3 RBC (4.50-5.90) mil/mm3 Hgb (13.0-17.0) gm/dL Hct (39.0-51.0) % MCV (80.0-100.0) fL MCH (27.0-34.0) pg MCHC (32.0-36.0) % RDW (11.6-17.2) % Plt Count (150-450) th/mm3 MPV (7.0-11.0) fL Neut % (Auto) (16.0-70.0) % Lymph % (Auto) (9.0-44.0) % [place] % (Auto) (0.0-8.0) % Eos % (Auto) (0.0-4.0) % Baso % (Auto) (0.0-2.0) % Neut # (Auto) (1.8-7.7) th/mm3 Lymph # (Auto) (1.0-4.8) th/mm3 [place] # (Auto) (0.0-0.9) th/mm3 Eos # (Auto) (0.0-0.4) th/mm3 Baso # (Auto) (0.0-0.2) th/mm3 WBC Differential Differential Comment Puncture Site Patient Temperature VBG pH (7.360-7.400) VBG pCO2 (44-48) mmHG VBG pO2 (35-40) mmHG VBG HCO3 (22-26) mmol/L VBG O2 Saturation (70-76) % VBG O2 Content (9.0-17.0) Vol % VBG Base Excess (-2-2) mmol/L VBG Carboxyhemoglobin (0-4) % VBG Methemoglobin (0-2) % Hemoglobin (12.0-16.0) G/DL O2 Delivery Device Inspired O2 % Critical Value Sodium 159 H* D (136-145) meq/L Potassium 3.4 L D (3.5-5.1) meq/L Chloride 123 H D (98-107) meq/L Carbon Dioxide 26.5 (21.0-32.0) meq/L Anion Gap 10 (5-15) meq/L BUN 31 H (7-18) mg/dL Creatinine 1.07 (0.60-1.30) mg/dL Estimated GFR 84 L (>89) mL/min POC Glucose 511 H* 484 H* (68-110) mg/dl Random Glucose 452 H* D (74-106) mg/dL Lactic Acid (0.4-2.0) mmol/L Calcium 9.1 D (8.5-10.1) mg/dL Phosphorus 1.1 L (2.5-4.9) mg/dL Magnesium 2.6 H (1.5-2.5) mg/dL Total Bilirubin 0.2 (0.2-1.0) mg/dL AST 26 (15-37) U/L ALT 51 (12-78) U/L Alkaline Phosphatase 249 H (45-117) U/L Ammonia (11-32) mcmol/L Total Creatine Kinase (39-308) U/L Troponin I Less than 0.02 L (0.02-0.05) ng/mL Total Protein 7.5 D (6.4-8.2) g/dL Albumin 3.6 D (3.4-5.0) g/dL Urine Color (Yellw/Straw) Urine Clarity (Clear) Urine pH (5.0-8.5) Ur Specific [place] (1.002-1.035) Urine Protein (Neg-Trace) mg/dL Urine Glucose (UA) (Negative) mg/dL Urine Ketones (Negative) mg/dL Urine Occult Blood (Negative) Urine Nitrate (Negative) Urine Bilirubin (Negative) Urine Urobilinogen (Less than 2) mg/dL Ur Leukocyte Esterase (Negative) Urine RBC (0-3) /hpf Urine WBC (0-5) /hpf Amorphous Sediment (None) /hpf Micro UA Comment Ur Microscopic Review Urine Culture Comments Nasal Screen MRSA (PCR) (Negative) 02/05/18 02/05/18 02/05/18 Range/Units 05:18 06:19 07:17 WBC (4.0-11.0) th/mm3 RBC (4.50-5.90) mil/mm3 Hgb (13.0-17.0) gm/dL Hct (39.0-51.0) % MCV (80.0-100.0) fL MCH (27.0-34.0) pg MCHC (32.0-36.0) % RDW (11.6-17.2) % Plt Count (150-450) th/mm3 MPV (7.0-11.0) fL Neut % (Auto) (16.0-70.0) % Lymph % (Auto) (9.0-44.0) % [place] % (Auto) (0.0-8.0) % Eos % (Auto) (0.0-4.0) % Baso % (Auto) (0.0-2.0) % Neut # (Auto) (1.8-7.7) th/mm3 Lymph # (Auto) (1.0-4.8) th/mm3 [place] # (Auto) (0.0-0.9) th/mm3 Eos # (Auto) (0.0-0.4) th/mm3 Baso # (Auto) (0.0-0.2) th/mm3 WBC Differential Differential Comment Puncture Site Patient Temperature VBG pH (7.360-7.400) VBG pCO2 (44-48) mmHG VBG pO2 (35-40) mmHG VBG HCO3 (22-26) mmol/L VBG O2 Saturation (70-76) % VBG O2 Content (9.0-17.0) Vol % VBG Base Excess (-2-2) mmol/L VBG Carboxyhemoglobin (0-4) % VBG Methemoglobin (0-2) % Hemoglobin (12.0-16.0) G/DL O2 Delivery Device Inspired O2 % Critical Value Sodium (136-145) meq/L Potassium (3.5-5.1) meq/L Chloride (98-107) meq/L Carbon Dioxide (21.0-32.0) meq/L Anion Gap (5-15) meq/L BUN (7-18) mg/dL Creatinine (0.60-1.30) mg/dL Estimated GFR (>89) mL/min POC Glucose 276 H 257 H 237 H (68-110) mg/dl Random Glucose (74-106) mg/dL Lactic Acid (0.4-2.0) mmol/L Calcium (8.5-10.1) mg/dL Phosphorus (2.5-4.9) mg/dL Magnesium (1.5-2.5) mg/dL Total Bilirubin (0.2-1.0) mg/dL AST (15-37) U/L ALT (12-78) U/L Alkaline Phosphatase (45-117) U/L Ammonia (11-32) mcmol/L Total Creatine Kinase (39-308) U/L Troponin I (0.02-0.05) ng/mL Total Protein (6.4-8.2) g/dL Albumin (3.4-5.0) g/dL Urine Color (Yellw/Straw) Urine Clarity (Clear) Urine pH (5.0-8.5) Ur Specific [place] (1.002-1.035) Urine Protein (Neg-Trace) mg/dL Urine Glucose (UA) (Negative) mg/dL Urine Ketones (Negative) mg/dL Urine Occult Blood (Negative) Urine Nitrate (Negative) Urine Bilirubin (Negative) Urine Urobilinogen (Less than 2) mg/dL Ur Leukocyte Esterase (Negative) Urine RBC (0-3) /hpf Urine WBC (0-5) /hpf Amorphous Sediment (None) /hpf Micro UA Comment Ur Microscopic Review Urine Culture Comments Nasal Screen MRSA (PCR) (Negative) 02/05/18 02/05/1802/05/18 Range/Units 07:45 07:45 08:20 WBC 8.6 (4.0-11.0) th/mm3 RBC 4.08 L (4.50-5.90) mil/mm3 Hgb 11.9 L (13.0-17.0) gm/dL Hct 37.3 L (39.0-51.0) % MCV 91.3 D (80.0-100.0) fL MCH 29.1 (27.0-34.0) pg MCHC 31.8 L (32.0-36.0) % RDW 14.6 (11.6-17.2) % Plt Count 193 (150-450) th/mm3 MPV 8.1 (7.0-11.0) fL Neut % (Auto) 75.6 H (16.0-70.0) % Lymph % (Auto) 15.0 (9.0-44.0) % [place] % (Auto) 9.2 H (0.0-8.0) % Eos % (Auto) 0.0 (0.0-4.0) % Baso % (Auto) 0.2 (0.0-2.0) % Neut # (Auto) 6.5 (1.8-7.7) th/mm3 Lymph # (Auto) 1.3 (1.0-4.8) th/mm3 [place] # (Auto) 0.8 (0.0-0.9) th/mm3 Eos # (Auto) 0.0 (0.0-0.4) th/mm3 Baso # (Auto) 0.0 (0.0-0.2) th/mm3 WBC Differential . Differential Comment Auto diff final Puncture Site Patient Temperature VBG pH (7.360-7.400) VBG pCO2 (44-48) mmHG VBG pO2 (35-40) mmHG VBG HCO3 (22-26) mmol/L VBG O2 Saturation (70-76) % VBG O2 Content (9.0-17.0) Vol % VBG Base Excess (-2-2) mmol/L VBG Carboxyhemoglobin (0-4) % VBG Methemoglobin (0-2) % Hemoglobin (12.0-16.0) G/DL O2 Delivery Device Inspired O2 % Critical Value Sodium (136-145) meq/L Potassium (3.5-5.1) meq/L Chloride (98-107) meq/L Carbon Dioxide (21.0-32.0) meq/L Anion Gap (5-15) meq/L BUN (7-18) mg/dL Creatinine (0.60-1.30) mg/dL Estimated GFR (>89) mL/min POC Glucose 296 H (68-110) mg/dl Random Glucose (74-106) mg/dL Lactic Acid 2.3 H (0.4-2.0) mmol/L Calcium (8.5-10.1) mg/dL Phosphorus (2.5-4.9) mg/dL Magnesium (1.5-2.5) mg/dL Total Bilirubin (0.2-1.0) mg/dL AST (15-37) U/L ALT (12-78) U/L Alkaline Phosphatase (45-117) U/L Ammonia (11-32) mcmol/L Total Creatine Kinase (39-308) U/L Troponin I (0.02-0.05) ng/mL Total Protein (6.4-8.2) g/dL Albumin (3.4-5.0) g/dL Urine Color (Yellw/Straw) Urine Clarity (Clear) Urine pH (5.0-8.5) Ur Specific [place] (1.002-1.035) Urine Protein (Neg-Trace) mg/dL Urine Glucose (UA) (Negative) mg/dL Urine Ketones (Negative) mg/dL Urine Occult Blood (Negative) Urine Nitrate (Negative) Urine Bilirubin (Negative) Urine Urobilinogen (Less than 2) mg/dL Ur Leukocyte Esterase (Negative) Urine RBC (0-3) /hpf Urine WBC (0-5) /hpf Amorphous Sediment (None) /hpf Micro UA Comment Ur Microscopic Review Urine Culture Comments Nasal Screen MRSA (PCR) (Negative) 02/05/18 02/05/18 02/05/18 Range/Units 09:26 10:34 11:25 WBC (4.0-11.0) th/mm3 RBC (4.50-5.90) mil/mm3 Hgb (13.0-17.0) gm/dL Hct (39.0-51.0) % MCV (80.0-100.0) fL MCH (27.0-34.0) pg MCHC (32.0-36.0) % RDW (11.6-17.2) % Plt Count (150-450) th/mm3 MPV (7.0-11.0) fL Neut % (Auto) (16.0-70.0) % Lymph % (Auto) (9.0-44.0) % [place] % (Auto) (0.0-8.0) % Eos % (Auto) (0.0-4.0) % Baso % (Auto) (0.0-2.0) % Neut # (Auto) (1.8-7.7) th/mm3 Lymph # (Auto) (1.0-4.8) th/mm3 [place] # (Auto) (0.0-0.9) th/mm3 Eos # (Auto) (0.0-0.4) th/mm3 Baso # (Auto) (0.0-0.2) th/mm3 WBC Differential Differential Comment Puncture Site Patient Temperature VBG pH (7.360-7.400) VBG pCO2 (44-48) mmHG VBG pO2 (35-40) mmHG VBG HCO3 (22-26) mmol/L VBG O2 Saturation (70-76) % VBG O2 Content (9.0-17.0) Vol % VBG Base Excess (-2-2) mmol/L VBG Carboxyhemoglobin (0-4) % VBG Methemoglobin (0-2) % Hemoglobin (12.0-16.0) G/DL O2 Delivery Device Inspired O2 % Critical Value Sodium (136-145) meq/L Potassium (3.5-5.1) meq/L Chloride (98-107) meq/L Carbon Dioxide (21.0-32.0) meq/L Anion Gap (5-15) meq/L BUN (7-18) mg/dL Creatinine (0.60-1.30) mg/dL Estimated GFR (>89) mL/min POC Glucose 294 H 165 H 138 H (68-110) mg/dl Random Glucose (74-106) mg/dL Lactic Acid (0.4-2.0) mmol/L Calcium (8.5-10.1) mg/dL Phosphorus (2.5-4.9) mg/dL Magnesium (1.5-2.5) mg/dL Total Bilirubin (0.2-1.0) mg/dL AST (15-37) U/L ALT (12-78) U/L Alkaline Phosphatase (45-117) U/L Ammonia (11-32) mcmol/L Total Creatine Kinase (39-308) U/L Troponin I (0.02-0.05) ng/mL Total Protein (6.4-8.2) g/dL Albumin (3.4-5.0) g/dL Urine Color (Yellw/Straw) Urine Clarity (Clear) Urine pH (5.0-8.5) Ur Specific [place] (1.002-1.035) Urine Protein (Neg-Trace) mg/dL Urine Glucose (UA) (Negative) mg/dL Urine Ketones (Negative) mg/dL Urine Occult Blood (Negative) Urine Nitrate (Negative) Urine Bilirubin (Negative) Urine Urobilinogen (Less than 2) mg/dL Ur Leukocyte Esterase (Negative) Urine RBC (0-3) /hpf Urine WBC (0-5) /hpf Amorphous Sediment (None) /hpf Micro UA Comment Ur Microscopic Review Urine Culture Comments Nasal Screen MRSA (PCR) (Negative) 02/05/18 02/05/18 02/05/18 Range/Units 12:34 12:44 13:29 WBC (4.0-11.0) th/mm3 RBC (4.50-5.90) mil/mm3 Hgb (13.0-17.0) gm/dL Hct (39.0-51.0) % MCV (80.0-100.0) fL MCH (27.0-34.0) pg MCHC (32.0-36.0) % RDW (11.6-17.2) % Plt Count (150-450) th/mm3 MPV (7.0-11.0) fL Neut % (Auto) (16.0-70.0) % Lymph % (Auto) (9.0-44.0) % [place] % (Auto) (0.0-8.0) % Eos % (Auto) (0.0-4.0) % Baso % (Auto) (0.0-2.0) % Neut # (Auto) (1.8-7.7) th/mm3 Lymph # (Auto) (1.0-4.8) th/mm3 [place] # (Auto) (0.0-0.9) th/mm3 Eos # (Auto) (0.0-0.4) th/mm3 Baso # (Auto) (0.0-0.2) th/mm3 WBC Differential Differential Comment Puncture Site Patient Temperature VBG pH (7.360-7.400) VBG pCO2 (44-48) mmHG VBG pO2 (35-40) mmHG VBG HCO3 (22-26) mmol/L VBG O2 Saturation (70-76) % VBG O2 Content (9.0-17.0) Vol % VBG Base Excess (-2-2) mmol/L VBG Carboxyhemoglobin (0-4) % VBG Methemoglobin (0-2) % Hemoglobin (12.0-16.0) G/DL O2 Delivery Device Inspired O2 % Critical Value Sodium 158 H* (136-145) meq/L Potassium 3.5 (3.5-5.1) meq/L Chloride 121 H (98-107) meq/L Carbon Dioxide 26.5 (21.0-32.0) meq/L Anion Gap 11 (5-15) meq/L BUN 25 H (7-18) mg/dL Creatinine 0.83 (0.60-1.30) mg/dL Estimated GFR Greater than 89 (>89) mL/min POC Glucose 77 248 H (68-110) mg/dl Random Glucose 126 H D (74-106) mg/dL Lactic Acid (0.4-2.0) mmol/L Calcium 9.4 (8.5-10.1) mg/dL Phosphorus (2.5-4.9) mg/dL Magnesium (1.5-2.5) mg/dL Total Bilirubin (0.2-1.0) mg/dL AST (15-37) U/L ALT (12-78) U/L Alkaline Phosphatase (45-117) U/L Ammonia (11-32) mcmol/L Total Creatine Kinase (39-308) U/L Troponin I (0.02-0.05) ng/mL Total Protein (6.4-8.2) g/dL Albumin (3.4-5.0) g/dL Urine Color (Yellw/Straw) Urine Clarity (Clear) Urine pH (5.0-8.5) Ur Specific [place] (1.002-1.035) Urine Protein (Neg-Trace) mg/dL Urine Glucose (UA) (Negative) mg/dL Urine Ketones (Negative) mg/dL Urine Occult Blood (Negative) Urine Nitrate (Negative) Urine Bilirubin (Negative) Urine Urobilinogen (Less than 2) mg/dL Ur Leukocyte Esterase (Negative) Urine RBC (0-3) /hpf Urine WBC (0-5) /hpf Amorphous Sediment (None) /hpf Micro UA Comment Ur Microscopic Review Urine Culture Comments Nasal Screen MRSA (PCR) (Negative) 02/05/18 02/05/18 02/05/18 Range/Units 17:30 19:13 19:13 WBC (4.0-11.0) th/mm3 RBC (4.50-5.90) mil/mm3 Hgb (13.0-17.0) gm/dL Hct (39.0-51.0) % MCV (80.0-100.0) fL MCH (27.0-34.0) pg MCHC (32.0-36.0) % RDW (11.6-17.2) % Plt Count (150-450) th/mm3 MPV (7.0-11.0) fL Neut % (Auto) (16.0-70.0) % Lymph % (Auto) (9.0-44.0) % [place] % (Auto) (0.0-8.0) % Eos % (Auto) (0.0-4.0) % Baso % (Auto) (0.0-2.0) % Neut # (Auto) (1.8-7.7) th/mm3 Lymph # (Auto) (1.0-4.8) th/mm3 [place] # (Auto) (0.0-0.9) th/mm3 Eos # (Auto) (0.0-0.4) th/mm3 Baso # (Auto) (0.0-0.2) th/mm3 WBC Differential Differential Comment Puncture Site Patient Temperature VBG pH (7.360-7.400) VBG pCO2 (44-48) mmHG VBG pO2 (35-40) mmHG VBG HCO3 (22-26) mmol/L VBG O2 Saturation (70-76) % VBG O2 Content (9.0-17.0) Vol % VBG Base Excess (-2-2) mmol/L VBG Carboxyhemoglobin (0-4) % VBG Methemoglobin (0-2) % Hemoglobin (12.0-16.0) G/DL O2 Delivery Device Inspired O2 % Critical Value Sodium 150 H (136-145) meq/L Potassium 3.6 (3.5-5.1) meq/L Chloride (98-107) meq/L Carbon Dioxide (21.0-32.0) meq/L Anion Gap (5-15) meq/L BUN (7-18) mg/dL Creatinine (0.60-1.30) mg/dL Estimated GFR (>89) mL/min POC Glucose 249 H (68-110) mg/dl Random Glucose (74-106) mg/dL Lactic Acid (0.4-2.0) mmol/L Calcium (8.5-10.1) mg/dL Phosphorus 2.6 D (2.5-4.9) mg/dL Magnesium (1.5-2.5) mg/dL Total Bilirubin (0.2-1.0) mg/dL AST (15-37) U/L ALT (12-78) U/L Alkaline Phosphatase (45-117) U/L Ammonia (11-32) mcmol/L Total Creatine Kinase (39-308) U/L Troponin I (0.02-0.05) ng/mL Total Protein (6.4-8.2) g/dL Albumin (3.4-5.0) g/dL Urine Color (Yellw/Straw) Urine Clarity (Clear) Urine pH (5.0-8.5) Ur Specific [place] (1.002-1.035) Urine Protein (Neg-Trace) mg/dL Urine Glucose (UA) (Negative) mg/dL Urine Ketones (Negative) mg/dL Urine Occult Blood (Negative) Urine Nitrate (Negative) Urine Bilirubin (Negative) Urine Urobilinogen (Less than 2) mg/dL Ur Leukocyte Esterase (Negative) Urine RBC (0-3) /hpf Urine WBC (0-5) /hpf Amorphous Sediment (None) /hpf Micro UA Comment Ur Microscopic Review Urine Culture Comments Nasal Screen MRSA (PCR) (Negative) 02/05/18 02/06/18 02/06/18 Range/Units 20:45 00:20 03:07 WBC (4.0-11.0) th/mm3 RBC (4.50-5.90) mil/mm3 Hgb (13.0-17.0) gm/dL Hct (39.0-51.0) % MCV (80.0-100.0) fL MCH (27.0-34.0) pg MCHC (32.0-36.0) % RDW (11.6-17.2) % Plt Count (150-450) th/mm3 MPV (7.0-11.0) fL Neut % (Auto) (16.0-70.0) % Lymph % (Auto) (9.0-44.0) % [place] % (Auto) (0.0-8.0) % Eos % (Auto) (0.0-4.0) % Baso % (Auto) (0.0-2.0) % Neut # (Auto) (1.8-7.7) th/mm3 Lymph # (Auto) (1.0-4.8) th/mm3 [place] # (Auto) (0.0-0.9) th/mm3 Eos # (Auto) (0.0-0.4) th/mm3 Baso # (Auto) (0.0-0.2) th/mm3 WBC Differential Differential Comment Puncture Site Patient Temperature VBG pH (7.360-7.400) VBG pCO2 (44-48) mmHG VBG pO2 (35-40) mmHG VBG HCO3 (22-26) mmol/L VBG O2 Saturation (70-76) % VBG O2 Content (9.0-17.0) Vol % VBG Base Excess (-2-2) mmol/L VBG Carboxyhemoglobin (0-4) % VBG Methemoglobin (0-2) % Hemoglobin (12.0-16.0) G/DL O2 Delivery Device Inspired O2 % Critical Value Sodium 146 H (136-145) meq/L Potassium 3.6 (3.5-5.1) meq/L Chloride 112 H D (98-107) meq/L Carbon Dioxide 26.8 (21.0-32.0) meq/L Anion Gap 7 (5-15) meq/L BUN 18 (7-18) mg/dL Creatinine 0.79 (0.60-1.30) mg/dL Estimated GFR Greater than 89 (>89) mL/min POC Glucose 245 H 112 H (68-110) mg/dl Random Glucose 182 H (74-106) mg/dL Lactic Acid (0.4-2.0) mmol/L Calcium 7.9 L D (8.5-10.1) mg/dL Phosphorus 2.2 L (2.5-4.9) mg/dL Magnesium 1.9 D (1.5-2.5) mg/dL Total Bilirubin (0.2-1.0) mg/dL AST (15-37) U/L ALT (12-78) U/L Alkaline Phosphatase (45-117) U/L Ammonia (11-32) mcmol/L Total Creatine Kinase (39-308) U/L Troponin I (0.02-0.05) ng/mL Total Protein (6.4-8.2) g/dL Albumin (3.4-5.0) g/dL Urine Color (Yellw/Straw) Urine Clarity (Clear) Urine pH (5.0-8.5) Ur Specific [place] (1.002-1.035) Urine Protein (Neg-Trace) mg/dL Urine Glucose (UA) (Negative) mg/dL Urine Ketones (Negative) mg/dL Urine Occult Blood (Negative) Urine Nitrate (Negative) Urine Bilirubin (Negative) Urine Urobilinogen (Less than 2) mg/dL Ur Leukocyte Esterase (Negative) Urine RBC (0-3) /hpf Urine WBC (0-5) /hpf Amorphous Sediment (None) /hpf Micro UA Comment Ur Microscopic Review Urine Culture Comments Nasal Screen MRSA (PCR) (Negative) 02/06/18 02/06/18 02/06/18 Range/Units 07:20 07:20 08:45 WBC 6.7 (4.0-11.0) th/mm3 RBC 3.24 L (4.50-5.90) mil/mm3 Hgb 9.3 L D (13.0-17.0) gm/dL Hct 29.1 L (39.0-51.0) % MCV 89.8 (80.0-100.0) fL MCH 28.7 (27.0-34.0) pg MCHC 31.9 L (32.0-36.0) % RDW 14.3 (11.6-17.2) % Plt Count 159 (150-450) th/mm3 MPV 8.9 (7.0-11.0) fL Neut % (Auto) (16.0-70.0) % Lymph % (Auto) (9.0-44.0) % [place] % (Auto) (0.0-8.0) % Eos % (Auto) (0.0-4.0) % Baso % (Auto) (0.0-2.0) % Neut # (Auto) (1.8-7.7) th/mm3 Lymph # (Auto) (1.0-4.8) th/mm3 [place] # (Auto) (0.0-0.9) th/mm3 Eos # (Auto) (0.0-0.4) th/mm3 Baso # (Auto) (0.0-0.2) th/mm3 WBC Differential Differential Comment Puncture Site Patient Temperature VBG pH (7.360-7.400) VBG pCO2 (44-48) mmHG VBG pO2 (35-40) mmHG VBG HCO3 (22-26) mmol/L VBG O2 Saturation (70-76) % VBG O2 Content (9.0-17.0) Vol % VBG Base Excess (-2-2) mmol/L VBG Carboxyhemoglobin (0-4) % VBG Methemoglobin (0-2) % Hemoglobin (12.0-16.0) G/DL O2 Delivery Device Inspired O2 % Critical Value Sodium 141 (136-145) meq/L Potassium (3.5-5.1) meq/L Chloride (98-107) meq/L Carbon Dioxide (21.0-32.0) meq/L Anion Gap (5-15) meq/L BUN (7-18) mg/dL Creatinine (0.60-1.30) mg/dL Estimated GFR (>89) mL/min POC Glucose 142 H (68-110) mg/dl Random Glucose (74-106) mg/dL Lactic Acid (0.4-2.0) mmol/L Calcium (8.5-10.1) mg/dL Phosphorus (2.5-4.9) mg/dL Magnesium (1.5-2.5) mg/dL Total Bilirubin (0.2-1.0) mg/dL AST (15-37) U/L ALT (12-78) U/L Alkaline Phosphatase (45-117) U/L Ammonia (11-32) mcmol/L Total Creatine Kinase (39-308) U/L Troponin I (0.02-0.05) ng/mL Total Protein (6.4-8.2) g/dL Albumin (3.4-5.0) g/dL Urine Color (Yellw/Straw) Urine Clarity (Clear) Urine pH (5.0-8.5) Ur Specific [place] (1.002-1.035) Urine Protein (Neg-Trace) mg/dL Urine Glucose (UA) (Negative) mg/dL Urine Ketones (Negative) mg/dL Urine Occult Blood (Negative) Urine Nitrate (Negative) Urine Bilirubin (Negative) Urine Urobilinogen (Less than 2) mg/dL Ur Leukocyte Esterase (Negative) Urine RBC (0-3) /hpf Urine WBC (0-5) /hpf Amorphous Sediment (None) /hpf Micro UA Comment Ur Microscopic Review Urine Culture Comments Nasal Screen MRSA (PCR) (Negative) 02/06/18 02/06/18 02/06/18 Range/Units 12:43 14:33 18:02 WBC (4.0-11.0) th/mm3 RBC (4.50-5.90) mil/mm3 Hgb (13.0-17.0) gm/dL Hct (39.0-51.0) % MCV (80.0-100.0) fL MCH (27.0-34.0) pg MCHC (32.0-36.0) % RDW (11.6-17.2) % Plt Count (150-450) th/mm3 MPV (7.0-11.0) fL Neut % (Auto) (16.0-70.0) % Lymph % (Auto) (9.0-44.0) % [place] % (Auto) (0.0-8.0) % Eos % (Auto) (0.0-4.0) % Baso % (Auto) (0.0-2.0) % Neut # (Auto) (1.8-7.7) th/mm3 Lymph # (Auto) (1.0-4.8) th/mm3 [place] # (Auto) (0.0-0.9) th/mm3 Eos # (Auto) (0.0-0.4) th/mm3 Baso # (Auto) (0.0-0.2) th/mm3 WBC Differential Differential Comment Puncture Site Patient Temperature VBG pH (7.360-7.400) VBG pCO2 (44-48) mmHG VBG pO2 (35-40) mmHG VBG HCO3 (22-26) mmol/L VBG O2 Saturation (70-76) % VBG O2 Content (9.0-17.0) Vol % VBG Base Excess (-2-2) mmol/L VBG Carboxyhemoglobin (0-4) % VBG Methemoglobin (0-2) % Hemoglobin (12.0-16.0) G/DL O2 Delivery Device Inspired O2 % Critical Value Sodium 139 (136-145) meq/L Potassium (3.5-5.1) meq/L Chloride (98-107) meq/L Carbon Dioxide (21.0-32.0) meq/L Anion Gap (5-15) meq/L BUN (7-18) mg/dL Creatinine (0.60-1.30) mg/dL Estimated GFR (>89) mL/min POC Glucose 255 H 165 H (68-110) mg/dl Random Glucose (74-106) mg/dL Lactic Acid (0.4-2.0) mmol/L Calcium (8.5-10.1) mg/dL Phosphorus (2.5-4.9) mg/dL Magnesium (1.5-2.5) mg/dL Total Bilirubin (0.2-1.0) mg/dL AST (15-37) U/L ALT (12-78) U/L Alkaline Phosphatase (45-117) U/L Ammonia (11-32) mcmol/L Total Creatine Kinase (39-308) U/L Troponin I (0.02-0.05) ng/mL Total Protein (6.4-8.2) g/dL Albumin (3.4-5.0) g/dL Urine Color (Yellw/Straw) Urine Clarity (Clear) Urine pH (5.0-8.5) Ur Specific [place] (1.002-1.035) Urine Protein (Neg-Trace) mg/dL Urine Glucose (UA) (Negative) mg/dL Urine Ketones (Negative) mg/dL Urine Occult Blood (Negative) Urine Nitrate (Negative) Urine Bilirubin (Negative) Urine Urobilinogen (Less than 2) mg/dL Ur Leukocyte Esterase (Negative) Urine RBC (0-3) /hpf Urine WBC (0-5) /hpf Amorphous Sediment (None) /hpf Micro UA Comment Ur Microscopic Review Urine Culture Comments Nasal Screen MRSA (PCR) (Negative) 02/06/18 02/06/18 02/07/18 Range/Units 19:21 19:56 04:59 WBC 3.9 L (4.0-11.0) th/mm3 RBC 3.62 L (4.50-5.90) mil/mm3 Hgb 10.4 L (13.0-17.0) gm/dL Hct 32.2 L (39.0-51.0) % MCV 89.0 (80.0-100.0) fL MCH 28.7 (27.0-34.0) pg MCHC 32.2 (32.0-36.0) % RDW 13.8 (11.6-17.2) % Plt Count 159 (150-450) th/mm3 MPV 8.7 (7.0-11.0) fL Neut % (Auto) (16.0-70.0) % Lymph % (Auto) (9.0-44.0) % [place] % (Auto) (0.0-8.0) % Eos % (Auto) (0.0-4.0) % Baso % (Auto) (0.0-2.0) % Neut # (Auto) (1.8-7.7) th/mm3 Lymph # (Auto) (1.0-4.8) th/mm3 [place] # (Auto) (0.0-0.9) th/mm3 Eos # (Auto) (0.0-0.4) th/mm3 Baso # (Auto) (0.0-0.2) th/mm3 WBC Differential Differential Comment Puncture Site Patient Temperature VBG pH (7.360-7.400) VBG pCO2 (44-48) mmHG VBG pO2 (35-40) mmHG VBG HCO3 (22-26) mmol/L VBG O2 Saturation (70-76) % VBG O2 Content (9.0-17.0) Vol % VBG Base Excess (-2-2) mmol/L VBG Carboxyhemoglobin (0-4) % VBG Methemoglobin (0-2) % Hemoglobin (12.0-16.0) G/DL O2 Delivery Device Inspired O2 % Critical Value Sodium 135 L (136-145) meq/L Potassium (3.5-5.1) meq/L Chloride (98-107) meq/L Carbon Dioxide (21.0-32.0) meq/L Anion Gap (5-15) meq/L BUN (7-18) mg/dL Creatinine (0.60-1.30) mg/dL Estimated GFR (>89) mL/min POC Glucose 237 H (68-110) mg/dl Random Glucose (74-106) mg/dL Lactic Acid (0.4-2.0) mmol/L Calcium (8.5-10.1) mg/dL Phosphorus (2.5-4.9) mg/dL Magnesium (1.5-2.5) mg/dL Total Bilirubin (0.2-1.0) mg/dL AST (15-37) U/L ALT (12-78) U/L Alkaline Phosphatase (45-117) U/L Ammonia (11-32) mcmol/L Total Creatine Kinase (39-308) U/L Troponin I (0.02-0.05) ng/mL Total Protein (6.4-8.2) g/dL Albumin (3.4-5.0) g/dL Urine Color (Yellw/Straw) Urine Clarity (Clear) Urine pH (5.0-8.5) Ur Specific [place] (1.002-1.035) Urine Protein (Neg-Trace) mg/dL Urine Glucose (UA) (Negative) mg/dL Urine Ketones (Negative) mg/dL Urine Occult Blood (Negative) Urine Nitrate (Negative) Urine Bilirubin (Negative) Urine Urobilinogen (Less than 2) mg/dL Ur Leukocyte Esterase (Negative) Urine RBC (0-3) /hpf Urine WBC (0-5) /hpf Amorphous Sediment (None) /hpf Micro UA Comment Ur Microscopic Review Urine Culture Comments Nasal Screen MRSA (PCR) (Negative) 02/07/18 02/07/18 02/07/18 Range/Units 04:59 07:10 11:56 WBC (4.0-11.0) th/mm3 RBC (4.50-5.90) mil/mm3 Hgb (13.0-17.0) gm/dL Hct (39.0-51.0) % MCV (80.0-100.0) fL MCH (27.0-34.0) pg MCHC (32.0-36.0) % RDW (11.6-17.2) % Plt Count (150-450) th/mm3 MPV (7.0-11.0) fL Neut % (Auto) (16.0-70.0) % Lymph % (Auto) (9.0-44.0) % [place] % (Auto) (0.0-8.0) % Eos % (Auto) (0.0-4.0) % Baso % (Auto) (0.0-2.0) % Neut # (Auto) (1.8-7.7) th/mm3 Lymph # (Auto) (1.0-4.8) th/mm3 [place] # (Auto) (0.0-0.9) th/mm3 Eos # (Auto) (0.0-0.4) th/mm3 Baso # (Auto) (0.0-0.2) th/mm3 WBC Differential Differential Comment Puncture Site Patient Temperature VBG pH (7.360-7.400) VBG pCO2 (44-48) mmHG VBG pO2 (35-40) mmHG VBG HCO3 (22-26) mmol/L VBG O2 Saturation (70-76) % VBG O2 Content (9.0-17.0) Vol % VBG Base Excess (-2-2) mmol/L VBG Carboxyhemoglobin (0-4) % VBG Methemoglobin (0-2) % Hemoglobin (12.0-16.0) G/DL O2 Delivery Device Inspired O2 % Critical Value Sodium 138 (136-145) meq/L Potassium 3.3 L (3.5-5.1) meq/L Chloride 106 (98-107) meq/L Carbon Dioxide 23.0 (21.0-32.0) meq/L Anion Gap 9 (5-15) meq/L BUN 10 (7-18) mg/dL Creatinine 0.62 (0.60-1.30) mg/dL Estimated GFR Greater than 89 (>89) mL/min POC Glucose 83 215 H (68-110) mg/dl Random Glucose 49 L* D (74-106) mg/dL Lactic Acid (0.4-2.0) mmol/L Calcium 7.9 L (8.5-10.1) mg/dL Phosphorus 2.6 (2.5-4.9) mg/dL Magnesium 1.9 (1.5-2.5) mg/dL Total Bilirubin (0.2-1.0) mg/dL AST (15-37) U/L ALT (12-78) U/L Alkaline Phosphatase (45-117) U/L Ammonia (11-32) mcmol/L Total Creatine Kinase (39-308) U/L Troponin I (0.02-0.05) ng/mL Total Protein (6.4-8.2) g/dL Albumin (3.4-5.0) g/dL Urine Color (Yellw/Straw) Urine Clarity (Clear) Urine pH (5.0-8.5) Ur Specific [place] (1.002-1.035) Urine Protein (Neg-Trace) mg/dL Urine Glucose (UA) (Negative) mg/dL Urine Ketones (Negative) mg/dL Urine Occult Blood (Negative) Urine Nitrate (Negative) Urine Bilirubin (Negative) Urine Urobilinogen (Less than 2) mg/dL Ur Leukocyte Esterase (Negative) Urine RBC (0-3) /hpf Urine WBC (0-5) /hpf Amorphous Sediment (None) /hpf Micro UA Comment Ur Microscopic Review Urine Culture Comments Nasal Screen MRSA (PCR) (Negative) Imaging Data Radiologist's impression: Chest X-Ray 02/04/18 22:06 CONCLUSION: No acute cardiopulmonary disease demonstrated. Head CT 02/04/18 22:06 CONCLUSION: No acute intracranial abnormality demonstrated. . ECG Data Attestation: I personally reviewed and interpreted this ECG as follows: Interpretation: Twelve-lead EKG was reviewed by me. Normal sinus rhythm, normal axis, nonspecific ST-T wave changes. Heart rate of 95 bpm Discharge Plan Discharge Disposition Patient Disposition: 30 Still Patient Discharge Condition Condition: Stable Discharge Order Discharge Orders: Discharge Order (Routine); Ordered 02/07/18 Ordered By: Kateryna Simms Discharge Details Anticipated Discharge Date: 02/07/18 Physicians Team ED Provider: Addis Gordon Primary Care Provider: UNKNOWN, Attending Provider: Kateryna Simms Other Providers: Warner Hylton Status ED Status: Left Department Discharge Information Discharge Date/Time: 02/05/18 01:18
[2018-02-04] MEDS ORDERED: Insulin Regular (For Infusion) 100 UNIT in Sodium Chlor 0.9% Inj 99 ML IV.CONT PRN (22:06)
--- NOTE | 2018-02-04 22:42 | XR ---
EXAM DATE: 02/04/2018 10:35 PM EST AGE/SEX: 67 years / Male INDICATIONS: Congestion. Cough. CLINICAL DATA: This is the patient's initial encounter. Patient reports that signs and symptoms have been present for 2 days and indicates a pain score of Nonresponsive. MEDICAL/SURGICAL HISTORY: None. None. COMPARISON: [facility] – [place], CHEST 1V SINGLE AP, 01/09/2018. . FINDINGS: A single AP view of the chest demonstrates the lungs to be symmetrically aerated without evidence of mass, infiltrate or effusion. The cardiomediastinal contours are unremarkable. Osseous structures a re intact. CONCLUSION: No acute cardiopulmonary disease demonstrated. Electronically signed by: Kyle Kumar MD 02/04/2018 10:41 PM EST
--- NOTE | 2018-02-04 22:44 | CT ---
EXAM DATE: 02/04/2018 10:39 PM EST AGE/SEX: 67 years / Male INDICATIONS: Altered mental status; found on floor. CLINICAL DATA: This is the patient's initial encounter. Patient reports that signs and symptoms have been present for 1 day and indicates a pain score of Nonresponsive. MEDICAL/SURGICAL HISTORY: Non-responsive. Non-responsive. RADIATION DOSE: 56.35 CTDI (mGy) COMPARISON: No prior exams available for comparison. TECHNIQUE: CT of the head without contrast. Using automated exposure control and adjustment of the mA and/or kV according to patient size, radiation dose was kept as low as reasonably achievable to ob tain optimal diagnostic quality images. DICOM format image data is available electronically for revi ew and comparison. FINDINGS: Cerebrum: No evidence of midline shift, mass lesion, hemorrhage or acute infarction. No extraaxial fluid collections are seen. Atrophy and generally commensurate mild ventriculomegaly seen. There is m ild chronic low-attenuation in the periventricular white matter. Posterior Fossa: The cerebellum and brainstem are intact. The 4th ventricle is midline. The cerebe llopontine angle is unremarkable. Extracranial: The visualized portion of the orbits is intact. Skull: The calvaria is intact. No evidence of skull fracture. CONCLUSION: No acute intracranial abnormality demonstrated. . Electronically signed by: Kyle Kumar MD 02/04/2018 10:42 PM EST
--- NOTE | 2018-02-04 22:44 | P.HPCC ---
History of Present Illness Service: Critical Care Medicine Primary Care Physician: UNKNOWN Chief Complaint: Altered mental status History of Present Illness: 67-year-old male who was reportedly found down at his home following which 911 called and patient was brought to the ER at [facility]. Unknown downtime. He was reportedly covered in feces. Known history of diabetes mellitus and his blood sugar in the field was reading high. GCS 12 on arrival in the ER. Patient was too disoriented and confused to give any history. On evaluation in the ER he was noted to have a blood glucose 1250 and was given 3 L normal saline bolus and 0.1 unit/kg IV insulin. He was diagnosed to be in HONK. She was accepted for admission on critical care medicine service. I advised the ER physician to initiate insulin drip. History was obtained by reviewing records and discussion with ER physician. Patient to disoriented to give any history. Inpatient Certification: I certify that the inpatient services were ordered in accordance with Medicare regulations governing the order. This includes certification that hospital inpatient services are reasonable and necessary and in the case of services not specified as inpatient-only under 42 CFR 419.22(n), that they are appropriately provided as inpatient services in accordance to with the 2-midnight benchmark under 43 CFR 412.3(e) Estimated Total Length of Stay (Days): 4 Plans for Post Hospital Care: Not yet determined Review of Systems unobtainable due to mental status PMFSH - History History Provided By: Medical Record - Medical History Medical History: Medical History (Last Updated 02/06/18 @ 08:23 by Kim Evans) Chest pain Diabetes Gastroparesis MDRO (multiple drug resistant organisms) resistance Onset Date: ~02/05/18 - Tobacco History Second Hand Smoke Exposure: No Tobacco Use In Past 30 Days: No Smoking Status: Former smoker Tobacco Type: Cigarettes - Alcohol History How Often Do You Have a Drink Containing Alcohol: Never - Substance Use History Substance History: No History of Abuse - Substance Use Type Crack/Cocaine Route Used: Inhalation Marijuana Route Used: By Mouth, Inhalation - Travel History Recent Travel in the [place] Within the Last 8 Weeks: No Recent Travel Out of the Country Within the Last 8 Weeks: No - Immunization History Tetanus Immunization: Unsure Medications and Allergies Active Medications: Active Medications Insulin Human Regular 100 unit (/ Sodium Chloride) 100 mls @ 0 mls/hr IV.CONT TITRATE PRN; Protocol PRN Reason: See protocol Sodium Chloride (Ns Flush) 2 ml IV.FLUSH PRN PRN PRN Reason: FLUSH AFTER USING IV ACCESS Allergies Allergy/AdvReac Type Severity Reaction Status Date / Time No Known Allergies Allergy Unverified 01/09/18 18:04 Home Medications Medication Instructions Recorded Confirmed Type gabapentin 300 mg PO BID 01/09/18 02/04/18 History insulin aspart U-100 [Novolog 1 sliding scale dose SUBCUT UD 01/09/18 02/04/18 History U-100 Insulin aspart] insulin degludec [Tresiba 20 unit SUBCUT DAILY 01/09/18 02/04/18 History FlexTouch U-100] ranitidine HCl 75 mg PO DAILY PRN 01/09/18 02/04/18 History sucralfate 1 g PO DAILY 01/09/18 02/04/18 History aspirin [Aspir-81] 81 mg PO DAILY 02/04/18 02/04/18 History Results - Labs CBC & Chem 7: 02/07/18 04:59 02/07/18 04:59 Labs: Short CBC 02/04/18 Range/Units 20:46 WBC 6.9 (4.0-11.0) th/mm3 Hgb 13.3 (13.0-17.0) gm/dL Hct 44.8 (39.0-51.0) % Plt Count 218 (150-450) th/mm3 BMP 02/04/18 20:46 Sodium 139 Potassium 5.3 H Chloride 98 Carbon Dioxide 30.6 BUN 45 H Creatinine 1.78 H Calcium 10.8 H Cardiac Enzymes 02/04/18 Range/Units 20:46 Total Creatine Kinase 105 (39-308) U/L Troponin I Less than 0.02 L (0.02-0.05) ng/mL Liver Function 02/04/18 Range/Units 20:46 Total Bilirubin 0.3 (0.2-1.0) mg/dL AST 48 H (15-37) U/L ALT 69 (12-78) U/L Alkaline Phosphatase 422 H (45-117) U/L Albumin 4.6 (3.4-5.0) g/dL Urine 02/04/18 Range/Units 20:46 Urine Color Straw (Yellw/Straw) Urine Clarity Hazy H (Clear) Urine pH 7.0 (5.0-8.5) Ur Specific [place] 1.027 (1.002-1.035) Urine Protein Negative (Neg-Trace) mg/dL Urine Glucose (UA) 500 or greater (Negative) mg/dL Exam Vital signs: Vital Signs 02/04/18 20:09 02/04/18 20:16 Temperature 98.7 F Pulse Rate 96 H 94 H Respiratory Rate 20 20 Blood Pressure 125/74 122/70 Pulse Oximetry 96 100 Intake & Output 02/04/18 02/04/18 02/05/18 06:59 18:59 06:59 Intake Total 1999 Balance 1999 Weight 65.771 kg Intake: IV 1999 NS Inj 1,000 ML @ 3000 mls/hr 1999 IV.SIG Q20M [facility] Rx#:[id number] Caprini VTE Risk Assessment Caprini VTE Risk Assessment: Moderate/High Risk (score >= 2) Joserini Risk Assessment Model: Point Value = 1 Point Value = 2 Point Value = 3 Point Value = 5 Age 41-60 Minor surgery BMI > 25 kg/m2 Swollen legs Varicose veins or History of unexplained or recurrent spontaneous Oral contraceptives or hormone replacement Sepsis (< 1 month) Serious lung disease, including pneumonia (< 1 month) Abnormal pulmonary function Acute myocardial infarction Congestive heart failure (< 1 month) History of inflammatory bowel disease Medical patient at bed rest Age 61-74 Arthroscopic surgery Major open surgery (> 45 min) Laparoscopic surgery (> 45 min) Malignancy Confined to bed (> 72 hours) Immobilizing plaster cast Central venous access Age >= 75 History of VTE Family history of VTE Factor V Leiden Prothrombin [id number] Lupus anticoagulant Anticardiolipin antibodies Elevated serum homocysteine Heparin-induced thrombocytopenia Other congenital or acquired thrombophilia Stroke (< 1 month) Elective arthroplasty Hip, pelvis, or leg fracture Acute spinal cord injury (< 1 month) Prophylaxis Regimen: Total Risk Factor Score Risk Level Prophylaxis Regimen 0-1 Low Early ambulation 2 Moderate Order ONE of the following: *Sequential Compression Device (SCD) *Heparin 5000 units SQ BID 3-4 Higher Order ONE of the following medications: *Heparin 5000 units SQ TID *Enoxaparin/Lovenox 40 mg SQ daily (WT < 150 kg, CrCl > 30 mL/min) *Enoxaparin/Lovenox 30 mg SQ daily (WT < 150 kg, CrCl > 10-29 mL/min) *Enoxaparin/Lovenox 30 mg SQ BID (WT < 150 kg, CrCl > 30 mL/min) AND/OR *Sequential Compression Device (SCD) 5 or more Highest Order ONE of the following medications: *Heparin 5000 units SQ TID (Preferred with Epidurals) *Enoxaparin/Lovenox 40 mg SQ daily (WT < 150 kg, CrCl > 30 mL/min) *Enoxaparin/Lovenox 30 mg SQ daily (WT < 150 kg, CrCl > 10-29 mL/min) *Enoxaparin/Lovenox 30 mg SQ BID (WT < 150 kg, CrCl > 30 mL/min) AND *Sequential Compression Device (SCD) Assessment and Plan - Assessment and Plan Plan: 67-year-old male with: Encephalopathy secondary to hyperosmolar state HONK-hyperosmolar nonketotic state Dehydration Hyperkalemia UTI Plan: Neuro: Follow neuro status. Avoid sedatives and narcotics Head CT pending Cardiovascular: Status post 3 L normal saline bolus. Watch for hypotension. Continue IV hydration Pulmonary: Supplemental O2 as needed, bronchodilators as needed. GI/liver: N.p.o. for now Renal/: IV hydration, strict intake output, monitor and replete electrolytes, follow BUN/creatinine. Will switch IV fluid to half normal saline as expect patient to get hypernatremic with correction of hyperglycemia since his sodium was 139 with a blood glucose of 1250. Follow serial BMPs ID: Received 1 dose of Rocephin in the ER. Follow-up urine cultures. Obtain blood cultures if not already done in the ER. Continue Rocephin 1 g IV daily Endocrine: Insulin drip non-DKA protocol with plan to switch to sliding scale insulin in a.m. Heme: Follow CBC Prophylaxis: Pepcid/SCDs. If head CT negative for bleed will initiate Lovenox. Condition critical Time spent on critical care excluding procedures 40 minutes
[2018-02-04] MEDS ORDERED: Sod Chloride 0.9% Inj 1,000 ML IV.SIG ONE (22:47)
[2018-02-04] MEDS ORDERED: Bisacodyl 10 MG Supp RECTAL PRN (22:59)
[2018-02-05] MEDS: Sodium Chloride 0.45 % Inj 1,000 ML IV.CONT SCH ×5 (00:03→20:24)
[2018-02-05] MEDS: Enoxaparin Inj 40 MG/0.4 ML Syringe SQ SCH (00:04)
[2018-02-05 01:42] LABS: Glucose,Random 836 mg/dL (74-106)
[2018-02-05] MEDS ORDERED: Chlorhexidine Gluconate 2% 1 Pack (2 Cloths) TOPICAL PRN (04:00)
[2018-02-05 04:50] LABS: Alanine Aminotransferase 51 U/L (12-78); Albumin 3.6 g/dL (3.4-5.0); Alkaline Phosphatase 249 U/L (45-117); Anion Gap 10 meq/L (5-15); Aspartate Aminotransferase 26 U/L (15-37); Blood Urea Nitrogen 31 mg/dL (7-18); Calcium 9.1 mg/dL (8.5-10.1); Carbon Dioxide 26.5 meq/L (21.0-32.0); Chloride 123 meq/L (98-107); Glomerular Filtration Rate 84 mL/min (>89); Magnesium 2.6 mg/dL (1.5-2.5); Phosphorus 1.1 mg/dL (2.5-4.9); Potassium 3.4 meq/L (3.5-5.1); Total Protein 7.5 g/dL (6.4-8.2)
[2018-02-05 04:53] LABS: Glucose,Random 452 mg/dL (74-106); Sodium 159 meq/L (136-145)
[2018-02-05] MEDS: Chlorhexidine Gluconate 2% 1 Pack (2 Cloths) TOPICAL SCH (05:07)
[2018-02-05] MEDS ORDERED: Magnesium Sulfate Inj 2 GM in Sodium Chlor 0.9% Inj 96 ML IV.SIG PRN ×2 (07:52→08:09)
[2018-02-05] MEDS ORDERED: Potassium Phosphate 500 MG Soluble Tablet PO PRN ×4 (07:52→08:09)
[2018-02-05] MEDS ORDERED: Sodium Phosphate Inj 30 MMOL in Sodium Chlor 0.9% Inj 250 ML IV.SIG PRN ×2 (07:52→08:09)
[2018-02-05] MEDS ORDERED: Potassium Chlor 20 mEq Premix 20 MEQ/100 ML PIGGYBACK IV.SIG PRN ×4 (07:52→08:09)
[2018-02-05] MEDS ORDERED: Potassium Chlor 40 mEq Premix 40 MEQ/100 ML PIGGYBACK IV.SIG PRN ×4 (07:52→08:09)
[2018-02-05] MEDS ORDERED: Potassium Chloride 25 MEQ Effervescent Tablet PO PRN ×2 (07:52→08:09)
[2018-02-05] MEDS ORDERED: Magnesium Oxide 400 MG Tablet PO PRN ×2 (07:52→08:09)
[2018-02-05] MEDS ORDERED: Potassium Phosphate Inj 30 MMOL in Sodium Chlor 0.9% Inj 250 ML IV.SIG PRN ×2 (07:52→08:09)
[2018-02-05] MEDS ORDERED: Magnesium Sulfate Inj 4 GM in Sodium Chlor 0.9% Inj 92 ML IV.SIG PRN ×2 (07:52→08:09)
[2018-02-05 08:13] LABS: Baso % (Auto) 0.2 % (0.0-2.0); Hematocrit 37.3 % (39.0-51.0); Hemoglobin 11.9 gm/dL (13.0-17.0); Lymph # (Auto) 1.3 th/mm3 (1.0-4.8); Mean Corpuscular HGB Conc 31.8 % (32.0-36.0); Mean Corpuscular Hemoglobin 29.1 pg (27.0-34.0); Mean Corpuscular Volume 91.3 fL (80.0-100.0); Mean Platelet Volume 8.1 fL (7.0-11.0); Mono # (Auto) 0.8 th/mm3 (0.0-0.9); Mono % (Auto) 9.2 % (0.0-8.0); Neut # (Auto) 6.5 th/mm3 (1.8-7.7); Neut % (Auto) 75.6 % (16.0-70.0); Platelet Count 193 th/mm3 (150-450); Red Blood Count 4.08 mil/mm3 (4.50-5.90); Red Cell Distribution Width 14.6 % (11.6-17.2); White Blood Count 8.6 th/mm3 (4.0-11.0)
[2018-02-05] MEDS ORDERED: Famotidine PF Inj 20 MG/2 ML Vial IV.PUSH SCH (09:00)
[2018-02-05] MEDS: Senna/Docusate Sodium 8.6/50 MG Tablet PO SCH ×2 (09:30→20:58)
--- NOTE | 2018-02-05 10:25 | ECG ---
Date Performed: 02/04/2018 Time Performed: 20:15:02 PTAGE: 67 years EKG: Sinus rhythm POSSIBLE RIGHT ATRIAL ENLARGEMENT BORDERLINE ECG Compared to prior electrocardiogram, rate has incre ased . DOCTOR: Anthony Tarango Interpretating Date/Time 02/05/2018 10:24:43
[2018-02-05 13:51] LABS: Anion Gap 11 meq/L (5-15); Blood Urea Nitrogen 25 mg/dL (7-18); Calcium 9.4 mg/dL (8.5-10.1); Carbon Dioxide 26.5 meq/L (21.0-32.0); Chloride 121 meq/L (98-107); Glomerular Filtration Rate Greater Than 89 mL/min (>89); Glucose,Random 126 mg/dL (74-106); Potassium 3.5 meq/L (3.5-5.1)
[2018-02-05 13:55] LABS: Sodium 158 meq/L (136-145)
--- NOTE | 2018-02-05 13:58 | P.PNCC ---
Subjective Subjective Remarks/Hospital Course: Hospital Course: 67-year-old male who was reportedly found down at his home following which 911 called and patient was brought to the ER at [facility]. Unknown downtime. He was reportedly covered in feces. Known history of diabetes mellitus and his blood sugar in the field was reading high. GCS 12 on arrival in the ER. Patient was too disoriented and confused to give any history. On evaluation in the ER he was noted to have a blood glucose 1250 and was given 3 L normal saline bolus and 0.1 unit/kg IV insulin. He was diagnosed to be in HONK. She was accepted for admission on critical care medicine service. I advised the ER physician to initiate insulin drip. History was obtained by reviewing records and discussion with ER physician. Patient to disoriented to give any history. Subjective: 02/05: glucose improving. mental status improving. passed bedside swallow eval. sodium rising, on free water replacement. Objective Vital Signs / I&O: Vital Signs 02/04/18 20:09 02/04/18 20:16 02/04/18 22:34 Temperature 37.1 C Pulse Rate 96 H 94 H Respiratory Rate 20 20 Blood Pressure 125/74 122/70 Pulse Oximetry 96 100 98 02/05/18 00:43 02/05/18 01:00 02/05/18 02:00 Temperature 36.7 C 36.7 C Pulse Rate 91 H 93 H 88 Respiratory Rate 17 27 H 19 Blood Pressure 125/66 122/64 124/63 Pulse Oximetry 94 L 100 99 02/05/18 03:00 02/05/18 04:00 02/05/18 05:00 Temperature Pulse Rate 85 82 81 Respiratory Rate 17 17 19 Blood Pressure 113/64 115/64 123/64 Pulse Oximetry 100 100 100 02/05/18 06:00 02/05/18 07:00 02/05/18 08:00 Temperature 36.6 C Pulse Rate 79 77 75 Respiratory Rate 21 17 20 Blood Pressure 123/68 135/72 134/73 Pulse Oximetry 100 100 100 02/05/18 09:00 02/05/18 10:00 02/05/18 10:01 Temperature Pulse Rate 75 79 78 Respiratory Rate 15 20 20 Blood Pressure 118/66 133/69 Pulse Oximetry 100 97 97 02/05/18 11:00 02/05/18 12:00 Temperature 36.7 C Pulse Rate 72 71 Respiratory Rate 20 18 Blood Pressure 138/73 142/77 H Pulse Oximetry 99 100 Intake & Output 02/04/18 02/05/18 02/05/18 18:59 06:59 18:59 Intake Total 5100 / 5100 900 / 900 Output Total 1500 / 1500 Balance 3600 / 3600 900 / 900 Weight 51.7 kg Intake: IV 5100 / 5100 900 / 900 1/2 Normal Saline Inj 1,000 ML 1000 / 1000 900 / 900 @ 200 mls/hr IV.CONT .Q5H [facility] Rx#:[id number] NS Inj 1,000 ML @ Wide Open IV. 4000 / 4000 SIG BOLUS ONE Rx#:[id number] Rocephin Inj 1,000 MG In NS Inj 100 / 100 100 ML @ 200 mls/hr IV.SIG ONCE ONE Rx#:[id number] Output: Urine Amount (Catheter) 1500 / 1500 Indwelling Urethral Catheter 1500 / 1500 Other: Date of Last Bowel Movement 02/05/18 02/05/18 # Incontinent Bowel Movements 5 Weight On Admission 53.8 kg Result Diagrams: 02/05/18 07:45 02/05/18 12:44 Objective Remarks: gen: cachectic frail elderly male who appears much older than stated age, lying in bed, resting but arousable. heent: nc. at. mucous membranes dry. perrl. neck: no jvd. trachea midline chest: equal chest rise. nc o2. unlabored cv: normal rate, regular rhythm. sinus abd: soft, nontender, nondistended. no guarding. extr: no edema. adequate cap refill. neuro: RASS -1/-2. awakens and follows commands x 4. no focal deficits. Assessment and Plan - Assessment and Plan Plan: 67-year-old male with: acute severe metabolic Encephalopathy secondary to hyperosmolar state- resolving HONK-hyperosmolar nonketotic state severe acute Dehydration Hyperkalemia UTI severe hypernatremia Poorly controlled diabetes Plan: Neuro: Follow neuro status. Avoid sedatives and narcotics Cardiovascular: Status post 3 L normal saline bolus. Watch for hypotension. Continue IV hydration Pulmonary: Supplemental O2 as needed, bronchodilators as needed. GI/liver: advance diet as tolerated. Renal/: IV hydration, strict intake output, monitor and replete electrolytes, follow BUN/creatinine. 1/2 NS mivf. trend sodium. ID: Received 1 dose of Rocephin in the ER. Follow-up urine cultures. Obtain blood cultures if not already done in the ER. Continue Rocephin 1 g IV daily Endocrine: transition to levemir and SSI. Heme: Follow CBC Prophylaxis: Pepcid/SCDs. lovenox transition out of ICU. consult hospitalist service to assume care.
[2018-02-05] MEDS ORDERED: Dextrose 50% in Water 50 ML Vial IV.PUSH PRN (14:01)
[2018-02-05] MEDS: Insulin Detemir Inj 1,000 UNIT/10 ML Vial SQ SCH ×2 (15:01→20:57)
[2018-02-05] MEDS: Insulin NovoLIN Regular Correctional Sugar Inj SQ SCH ×2 (17:33→20:57)
[2018-02-05 20:00] LABS: Potassium 3.6 meq/L (3.5-5.1)
[2018-02-05 20:08] LABS: Phosphorus 2.6 mg/dL (2.5-4.9)
[2018-02-05] MEDS: Famotidine 20 MG Tablet PO SCH (20:57)
[2018-02-06] MEDS: Enoxaparin Inj 40 MG/0.4 ML Syringe SQ SCH ×2 (00:25→23:32)
[2018-02-06] MEDS: Sodium Chloride 0.45 % Inj 1,000 ML IV.CONT SCH ×6 (00:25→23:40)
[2018-02-06 01:35] LABS: Anion Gap 7 meq/L (5-15); Blood Urea Nitrogen 18 mg/dL (7-18); Calcium 7.9 mg/dL (8.5-10.1); Carbon Dioxide 26.8 meq/L (21.0-32.0); Chloride 112 meq/L (98-107); Glomerular Filtration Rate Greater Than 89 mL/min (>89); Glucose,Random 182 mg/dL (74-106); Magnesium 1.9 mg/dL (1.5-2.5); Phosphorus 2.2 mg/dL (2.5-4.9); Potassium 3.6 meq/L (3.5-5.1); Sodium 146 meq/L (136-145)
[2018-02-06] MEDS: Insulin NovoLIN Regular Correctional Sugar Inj SQ SCH ×5 (03:09→20:25)
[2018-02-06] MEDS: Chlorhexidine Gluconate 2% 1 Pack (2 Cloths) TOPICAL SCH (03:10)
[2018-02-06] MEDS: Famotidine 20 MG Tablet PO SCH ×2 (08:48→20:24)
[2018-02-06] MEDS: Senna/Docusate Sodium 8.6/50 MG Tablet PO SCH ×2 (08:48→20:24)
[2018-02-06] MEDS: Insulin Detemir Inj 1,000 UNIT/10 ML Vial SQ SCH ×2 (08:49→20:24)
[2018-02-06 09:51] LABS: Hematocrit 29.1 % (39.0-51.0); Hemoglobin 9.3 gm/dL (13.0-17.0); Mean Corpuscular HGB Conc 31.9 % (32.0-36.0); Mean Corpuscular Hemoglobin 28.7 pg (27.0-34.0); Mean Corpuscular Volume 89.8 fL (80.0-100.0); Mean Platelet Volume 8.9 fL (7.0-11.0); Platelet Count 159 th/mm3 (150-450); Red Blood Count 3.24 mil/mm3 (4.50-5.90); Red Cell Distribution Width 14.3 % (11.6-17.2); White Blood Count 6.7 th/mm3 (4.0-11.0)
--- NOTE | 2018-02-06 15:05 | P.DCO ---
- Diagnosis (1) Hyperosmolar (nonketotic) coma Status: Acute (2) Diabetes Status: Acute (3) Gastroparesis Status: Acute - Physical Therapy Order: Evaluate and treat - Home Health Nursing Order: Medical education, Signs/symptoms of disease process, Diabetic education , Medication education-adverse effect, Nursing assessment with vital signs - Case Management Consult Yes - Certification I have seen patient Castillo Wise on 02/06/18. My clinical findings support the need for the requested home health care services because: Limited mobility due to disease progression, Patient has SOB, Deconditioned with increased weakness I certify that my clinical findings support that this patient is homebound because: Post-op weakness, Impaired cognitive ability/safety, Unsteady gait/balance
--- NOTE | 2018-02-06 16:17 | P.PNIM ---
Subjective Interval history: feeling weak and woozy when he stands. He cannot remember what happened to him and how he ended up in the hospital. I explained to him his blood sugar was extremely high. Physical Exam Vital signs: Last Vital Signs Temp 98.5 F 02/06/18 12:00 Pulse 74 02/06/18 12:00 Resp 18 02/06/18 12:00 BP 112/68 02/06/18 12:00 Pulse Ox 100 02/06/18 12:00 Intake & Output 02/04/18 02/05/18 02/06/18 02/07/18 06:59 06:59 06:59 06:59 Intake Total 5100 / 5100 6315 / 6315 1000 / 1000 Output Total 1500 / 1500 1025 / 1025 Balance 3600 / 3600 5290 / 5290 1000 / 1000 Weight 51.7 kg Narrative: GENERAL:middle aged man,appears older than stated age, thin SKIN: Warm and dry. HEENT:not pale,anicteric,dry oral mucous membranes. NECK: Supple, trachea midline. No JVD or lymphadenopathy. CARDIOVASCULAR: Regular rate and rhythm without murmurs, gallops, or rubs. RESPIRATORY: Breath sounds equal bilaterally. No accessory muscle use. GASTROINTESTINAL: Abdomen soft, non-tender, nondistended. EXTREMITIES:no edema NEUROLOGICAL: Awake, alert, and oriented x 3. Non-focal deficits. Urinary Catheter Management Indwelling Urethral Catheter: Cath placed during this visit: yes, but has since been removed by the nurse Insertion date: 02/04/18 Insertion time: 20:43 Removal date: 02/05/18 Removal time: 15:00 Straight: Cath placed during this visit: no Results Labs CBC & Chem 7: 02/06/18 07:20 02/06/18 14:33 Labs: Microbiology 02/04/18 23:50 Blood - Peripheral Aerobic Blood Culture - Preliminary No growth in 2 days 02/04/18 23:50 Blood - Peripheral Anaerobic Blood Culture - Preliminary No growth in 2 days 02/04/18 23:45 Blood - Peripheral Aerobic Blood Culture - Preliminary No growth in 2 days 02/04/18 23:45 Blood - Peripheral Anaerobic Blood Culture - Preliminary No growth in 2 days 02/04/18 20:46 Catheterized Urine Urine Culture - Final No growth in 48 hours Assessment and Plan (1) Hyperosmolar (nonketotic) coma: Code(s): E11.01 - Type 2 diabetes mellitus with hyperosmolarity with coma Status: Acute (2) Diabetes: Code(s): E11.9 - Type 2 diabetes mellitus without complications Status: Acute (3) Gastroparesis: Code(s): K31.84 - Gastroparesis Status: Acute Plan 67 yo M with h/o DM, gastroparesis who was admitted in ICU initially due to HONK , required insulin drip and intravenous hydration. He was stabilized and transitioned to Levemir. Blood glucose is controlled. DM -Honk resolved. -blood glucose now within acceptable limit. Patient reports being on Tresiba and Novolog at home, he can be transitioned to these on discharge,. 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 Wooziness likely related to low intravascular volume, BP was low in am hours. encourage oral intake, can give intermitent IV fluid bolus. check orthostatic vitals. patient is also significantly deconditioned in the setting of acute illness. PT/OT eval appreciated. Disposition: anticipate patient will be ready for discharge on 02/07. Progress Note: Quality VTE Deep Vein Thrombosis/Pulmonary Embolism Present on Admission: No _ (1) Diabetes Qualifiers: Diabetes mellitus type: Diabetes mellitus nursing home insulin use: Diabetes mellitus complication status: Diabetes mellitus complication detail: Diabetic retinopathy severity: Proliferative retinopathy type: Diabetes mellitus macular edema: Laterality: Chronic kidney disease stage:
--- NOTE | 2018-02-06 16:56 | P.DS ---
Date of admission: 02/04/18 22:10 Primary care physician: UNKNOWN Brief History from admission: 67-year-old male who was reportedly found down at his home following which 911 called and patient was brought to the ER at [facility]. Unknown downtime. He was reportedly covered in feces. Known history of diabetes mellitus and his blood sugar in the field was reading high. GCS 12 on arrival in the ER. Patient was too disoriented and confused to give any history. On evaluation in the ER he was noted to have a blood glucose 1250 and was given 3 L normal saline bolus and 0.1 unit/kg IV insulin. He was diagnosed to be in HONK. She was accepted for admission on critical care medicine service. I advised the ER physician to initiate insulin drip. History was obtained by reviewing records and discussion with ER physician. Patient to disoriented to give any history. DS: Diagnosis - Discharge Diagnosis (1) Hyperosmolar (nonketotic) coma Status: Acute (2) Diabetes Status: Acute (3) Gastroparesis Status: Acute DS: Summary Hospital Course: 67 yo M with h/o DM, gastroparesis who was admitted in ICU initially due to HONK , required insulin drip and intravenous hydration. He was stabilized and transitioned to Levemir. Blood glucose is controlled. DM -Honk resolved. -blood glucose now within acceptable limit. Patient reports being on Tresiba and Novolog at home, he can be transitioned to these on discharge,. 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 Wooziness likely related to low intravascular volume, BP was low in am hours. encourage oral intake, can give intermitent IV fluid bolus. check orthostatic vitals. patient is also significantly deconditioned in the setting of acute illness. PT/OT eval appreciated. - Time Spent with Patient Total time spent providing and/or coordinating discharge services: Greater than 30 minutes - Quality: VTE Deep Vein Thrombosis/Pulmonary Embolism Present on Admission: No Exam Vital signs: Vital Signs 02/05/18 17:00 02/05/18 18:00 02/05/18 19:00 Temperature Pulse Rate 75 64 75 Respiratory Rate 13 20 15 Blood Pressure 145/80 H 135/76 135/74 Pulse Oximetry 100 100 100 02/05/18 20:00 02/05/18 21:00 11/11/18 21:01 Temperature 99 F Pulse Rate 72 78 79 Respiratory Rate 16 22 35 H Blood Pressure 123/76 138/76 Pulse Oximetry 100 100 100 02/05/18 22:00 02/05/18 22:01 02/05/18 23:25 Temperature Pulse Rate 78 77 74 Respiratory Rate 18 15 Blood Pressure 119/73 Pulse Oximetry 100 100 02/05/18 23:45 02/06/18 00:00 02/06/18 04:00 Temperature 98.6 F 98.6 F Pulse Rate 76 74 69 Respiratory Rate 18 18 Blood Pressure 120/60 90/52 L Pulse Oximetry 100 100 02/06/18 08:00 02/06/18 11:54 02/06/18 12:00 Temperature 98.4 F 98.5 F Pulse Rate 69 74 Respiratory Rate 18 18 Blood Pressure 123/73 112/68 Pulse Oximetry 100 100 100 02/06/18 16:00 Temperature Pulse Rate 70 Respiratory Rate Blood Pressure Pulse Oximetry Intake & Output 02/05/18 02/06/18 02/06/18 18:59 06:59 18:59 Intake Total 3215 / 3215 3100 / 3100 1000 / 1000 Output Total 425 / 425 600 / 600 Balance 2790 / 2790 2500 / 2500 1000 / 1000 Intake: IV 2215 / 2215 3100 / 3100 1000 / 1000 NovoLIN R (IV Infusion) 100 55 / 55 UNIT In NS Inj 99 ML @ Per Protocol IV.CONT TITRATE PRN Rx #:[id number] 1/2 Normal Saline Inj 1,000 ML 1900 / 1900 3000 / 3000 1000 / 1000 @ 200 mls/hr IV.CONT .Q5H [facility] Rx#:[id number] Potassium Phosphate Inj 30 MMOL 260 / 260 In NS Inj 250 ML @ 42 mls/hr IV.SIG UNSCH PRN Rx#:[id number] Rocephin Inj 1,000 MG In NS Inj 100 / 100 100 ML @ 200 mls/hr IV.SIG Q24H [facility] Rx#:[id number] Oral 1000 / 1000 Output: Urine Amount (Catheter) 425 / 425 600 / 600 Indwelling Urethral Catheter 425 / 425 Straight 600 / 600 Other: Date of Last Bowel Movement 02/05/18 02/05/18 02/05/18 # Bowel Movements 5 Narrative: GENERAL:middle aged man,appears older than stated age, thin CARDIOVASCULAR: Regular rate and rhythm without murmurs, gallops, or rubs. RESPIRATORY: Breath sounds equal bilaterally. No accessory muscle use. GASTROINTESTINAL: Abdomen soft, non-tender, nondistended. EXTREMITIES:no edema NEUROLOGICAL: Awake, alert, and oriented x 3. Non-focal deficits. Results Procedures completed during hospitalization: none Labs on day of discharge: Labs from last 24 hours 02/06/18 02/06/18 02/06/18 14:33 12:43 08:45 WBC RBC Hgb Hct MCV MCH MCHC RDW Plt Count MPV Sodium 139 Potassium Chloride Carbon Dioxide Anion Gap BUN Creatinine Estimated GFR POC Glucose 255 H 142 H Random Glucose Calcium Phosphorus Magnesium 02/06/18 02/06/18 02/06/18 07:20 07:20 03:07 WBC 6.7 RBC 3.24 L Hgb 9.3 L D Hct 29.1 L MCV 89.8 MCH 28.7 MCHC 31.9 L RDW 14.3 Plt Count 159 MPV 8.9 Sodium 141 Potassium Chloride Carbon Dioxide Anion Gap BUN Creatinine Estimated GFR POC Glucose 112 H Random Glucose Calcium Phosphorus Magnesium 02/06/18 02/05/18 02/05/18 00:20 20:45 19:13 WBC RBC Hgb Hct MCV MCH MCHC RDW Plt Count MPV Sodium 146 H Potassium 3.6 3.6 Chloride 112 H D Carbon Dioxide 26.8 Anion Gap 7 BUN 18 Creatinine 0.79 Estimated GFR Greater than 89 POC Glucose 245 H Random Glucose 182 H Calcium 7.9 L D Phosphorus 2.2 L 2.6 D Magnesium 1.9 D 02/05/18 02/05/18 19:13 17:30 WBC RBC Hgb Hct MCV MCH MCHC RDW Plt Count MPV Sodium 150 H Potassium Chloride Carbon Dioxide Anion Gap BUN Creatinine Estimated GFR POC Glucose 249 H Random Glucose Calcium Phosphorus Magnesium Preliminary micro results at discharge 02/04/18 23:50 Aerobic Blood Culture - Preliminary Blood - Peripheral No growth in 2 days Anaerobic Blood Culture - Preliminary No growth in 2 days 02/04/18 23:45 Aerobic Blood Culture - Preliminary Blood - Peripheral No growth in 2 days Anaerobic Blood Culture - Preliminary No growth in 2 days - Impressions ITS Impressions Chest X-Ray 02/04/18 22:06 CONCLUSION: No acute cardiopulmonary disease demonstrated. Head CT 02/04/18 22:06 CONCLUSION: No acute intracranial abnormality demonstrated. . Discharge Plan - Discharge Disposition Patient Disposition: Disch W/Home Health Service - Discharge Condition Condition: Stable - Discharge Order Discharge Orders: Discharge Order (Routine); Ordered 02/07/18 Ordered By: Kateryna Simms - Discharge Details Anticipated Discharge Date: 02/07/18 - Physicians Team Primary Care Provider: UNKNOWN, Attending Provider: Kateryna Simms Other Providers: Warner Hylton
[2018-02-06] MEDS ORDERED: Melatonin 5 MG Tablet PO PRN (22:47)
[2018-02-07] MEDS: Sodium Chloride 0.45 % Inj 1,000 ML IV.CONT SCH ×4 (03:10→11:57)
[2018-02-07] MEDS: Insulin NovoLIN Regular Correctional Sugar Inj SQ SCH ×3 (03:11→11:57)
[2018-02-07] MEDS: Chlorhexidine Gluconate 2% 1 Pack (2 Cloths) TOPICAL SCH (03:12)
[2018-02-07 06:20] LABS: Hematocrit 32.2 % (39.0-51.0); Hemoglobin 10.4 gm/dL (13.0-17.0); Mean Corpuscular HGB Conc 32.2 % (32.0-36.0); Mean Corpuscular Hemoglobin 28.7 pg (27.0-34.0); Mean Platelet Volume 8.7 fL (7.0-11.0); Platelet Count 159 th/mm3 (150-450); Red Blood Count 3.62 mil/mm3 (4.50-5.90); Red Cell Distribution Width 13.8 % (11.6-17.2); White Blood Count 3.9 th/mm3 (4.0-11.0)
[2018-02-07 06:58] LABS: Anion Gap 9 meq/L (5-15); Blood Urea Nitrogen 10 mg/dL (7-18); Calcium 7.9 mg/dL (8.5-10.1); Chloride 106 meq/L (98-107); Glomerular Filtration Rate Greater Than 89 mL/min (>89); Magnesium 1.9 mg/dL (1.5-2.5); Phosphorus 2.6 mg/dL (2.5-4.9); Potassium 3.3 meq/L (3.5-5.1); Sodium 138 meq/L (136-145)
[2018-02-07 07:05] LABS: Glucose,Random 49 mg/dL (74-106)
[2018-02-07] MEDS: Insulin Detemir Inj 1,000 UNIT/10 ML Vial SQ SCH (08:56)
[2018-02-07] MEDS: Senna/Docusate Sodium 8.6/50 MG Tablet PO SCH (08:59)
[2018-02-07] MEDS: Famotidine 20 MG Tablet PO SCH (08:59)
[2018-02-07 09:01] VITALS: BP 152/86; RESP 18; TEMP 97.9
[2018-02-07 10:52] VITALS: O2SAT 99
[2018-02-07 13:14] VITALS: PULSE 70
== END 2018-02-07 13:38 | disposition home health service (06) ==
LOC: NEPC 20:04 → NEDA 22:10 → HIMC 02-05 00:15 → N04 02-05 22:53
PROVIDERS: ADMIT Hospitalist; ATTEND Hospitalist
DX: E86.0 Dehydration; Z79.82 Long term (current) use of aspirin; E87.0 Hyperosmolality and hypernatremia; K31.84 Gastroparesis; E11.01 Type 2 diabetes mellitus with hyperosmolarity with coma; Z16.24 Resistance to multiple antibiotics; Z87.891 Personal history of nicotine dependence; E11.43 Type 2 diabetes mellitus with diabetic autonomic (poly)neuropathy; E87.5 Hyperkalemia; Z79.4 Long term (current) use of insulin; G93.41 Metabolic encephalopathy